=== PATIENT | male | born 1970 | race Caucasian/White ===

== ENCOUNTER 2017-09-13 07:25 | Emergency (ER) | payer OTHER, SELFPAY ==
[2017-09-13] MEDS ORDERED: DIAZEPAM 10 MG/2 ML INJ SYRINGE ONE (08:10)
--- NOTE | 2017-09-13 08:34 | RAD REPORT ---
EXAM DESCRIPTION: CT - Angio Aorta For Dissection - 09/13/2017 8:09 am CLINICAL HISTORY: . Chest pain abdominal pain COMPARISON: 2009 TECHNIQUE: Computed tomography angiography of the chest, abdomen pelvis were obtained. 100 cc Isovue 370 was administered intravenously. Coronal and sagittal reconstruction were performed. All CT scans are performed using dose optimization technique as appropriate and may include automated exposure control or mA/KV adjustment according to patient size. FINDINGS: An aortic dissection is not seen. An aortic aneurysm is not displayed. A a minimal coarct ation involves the very proximal descending thoracic aorta. The celiac, SMA and DECLAN are patent . A lung consolidation is not present. A pericardial effusion is not seen. A pleural effusion is not n oted. The liver,spleen, pancreas and right adrenal kidneys demonstrate no significant abnormality. A small left adrenal adenoma is suspected The appendix is normal. There no evidence diverticulitis. No ascites is noted. IMPRESSION: Negative for an aortic dissection. 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
[2017-09-13 08:36] LABS: Absolute Lymphocytes (CBC) 2.1 K/uL (0.7-4.9); Absolute Monocytes 0.7 K/uL (0.1-1.3); Absolute Neutrophil 2.3 K/uL (1.8-8.0); Eosinophils % 5.3 % (0-4.4); Hematocrit 46.8 % (39.6-49.0); Lymphocytes % 38.3 % (15.3-44.8); MCH 29.4 pg (27.0-35.0); MCV 87.2 fL (80-100); MPV 9.7 fL (7.6-11.3); Monocytes % 12.7 % (3.3-12.3); RBC Red Blood Cell Count 5.37 M/uL (4.33-5.43)
[2017-09-13 08:38] LABS: Protime INR 1.05
[2017-09-13] MEDS ORDERED: KETOROLAC 30 MG/ML INJ ONE (09:02)
[2017-09-13 09:10] LABS: CKMB Creatine Kinase MB 0.8 ng/ml (0.3-4.0); Potassium 4.2 mEq/L (3.6-5.0)
[2017-09-13 09:17] LABS: Albumin 3.6 g/dL (3.2-5.5); Bilirubin Direct 0.2 mg/dL (0-0.2); Bilirubin Total 1.3 mg/dL (0.3-1.2); Magnesium 2.1 mg/dL (1.8-2.5); Protein, Total 6.5 g/dL (6.0-8.3)
[2017-09-13] MEDS ORDERED: FENTANYL CITR 100 MCG/2 ML ONE (09:49)
--- NOTE | 2017-09-13 10:54 | ER ---
Nurse's Notes [facility] Name: Arturo Patel Age: 46 yrs Sex: Male : 1970 Arrival Date: 09/13/2017 Time: 07:26 Bed 16 Private MD: Saurabh Alfonso Diagnosis: Muscle spasm of back Presentation: 09/13 07:22 Presenting complaint: EMS states: pt was at home walking to his truck, started with tw2 stabbing sharp pain in the middle of the back, vs stable, Normal Sinus on EKG, did give 1 nitro relieved pain for a few seconds, 20 g Left ac. Transition of care: patient was not received from another setting of care. Onset of symptoms was September 13, 2017. Risk Assessment: Do you want to hurt yourself or someone else? Patient reports no desire to harm self or others. Initial Sepsis Screen: Does the patient meet any 2 criteria? No. Patient's initial sepsis screen is negative. Does the patient have a suspected source of infection? No. Patient's initial sepsis screen is negative. Care prior to arrival: IV initiated. 20 GA, in the left antecubital area. 07:22 Method Of Arrival: EMS: [facility] tw2 07:22 Acuity: JIMBO 3 tw2 Historical: - Allergies: 07:36 Codeine; tw2 07:30 Codeine; tw2 - Home Meds: 07:36 Nexium Oral [Active]; lisinopril 5 mg oral tab [Active]; tw2 07:30 Nexium Oral [Active]; tw2 - PMHx: 07:36 Hypertension; tw2 07:30 Hypertension; tw2 - PSHx: 07:36 None; tw2 07:30 None; tw2 - Immunization history:: Adult Immunizations up to date. - Social history:: Smoking status: Patient/guardian denies using tobacco. - Ebola Screening: : Patient denies travel to an Ebola-affected area in the 21 days before illness onset. Screenin:36 Abuse screen: Denies threats or abuse. Nutritional screening: No deficits noted. tw2 Tuberculosis screening: No symptoms or risk factors identified. Fall Risk None identified. Assessment: 07:36 General: Appears uncomfortable, well groomed, Behavior is appropriate for age, pt tw2 ambulated slowly from EMS stretcher to bed, stated "i just want to straighten up a bit", pt moaning, pt states "i dont want any pain medicine". Pain: Complains of pain in thoracic area and lumbar area. Neuro: Level of Consciousness is awake, alert, obeys commands, Oriented to person, place, time, situation. Cardiovascular: Denies chest pain, shortness of breath, Heart tones S1 S2 Capillary refill < 3 seconds Patient's skin is warm and dry. Respiratory: Airway is patent Respiratory effort is even, unlabored, Respiratory pattern is regular, symmetrical, Breath sounds are clear bilaterally. GI: No signs and/or symptoms were reported involving the gastrointestinal system. Abdomen is flat, Bowel sounds present X 4 quads. : No signs and/or symptoms were reported regarding the genitourinary system. EENT: No signs and/or symptoms were reported regarding the EENT system. Derm: No signs and/or symptoms reported regarding the dermatologic system. Musculoskeletal: Circulation, motion, and sensation intact. Reports pain in back since "started when i stepped up into my truck", truck is lifted . 08:57 Reassessment: No changes from previously documented assessment. Patient and/or family tw2 updated on plan of care and expected duration. Pain level reassessed. Patient is alert, oriented x 3, equal unlabored respirations, skin warm/dry/pink. 09:38 Reassessment: provider at bedside at this time. tw2 09:56 Reassessment: No changes from previously documented assessment. Patient and/or family tw2 updated on plan of care and expected duration. Pain level reassessed. Patient is alert, oriented x 3, equal unlabored respirations, skin warm/dry/pink. 10:28 Reassessment: pt attempted to ambulate behind w/c at this time, still uncomfortable, tw2 facial grimacing noted, pt states "its better". 11:14 Reassessment: Patient appears in no apparent distress at this time. Patient and/or tw2 family updated on plan of care and expected duration. Pain level reassessed. Patient is alert, oriented x 3, equal unlabored respirations, skin warm/dry/pink. Patient states feeling better. Patient states symptoms have improved. Vital Signs: 07:40 BP 117 / 88; Pulse 72; Resp 18; Temp 97.9(O); Pulse Ox 98% on R/A; Weight 81.65 kg (R); tw2 Height 5 ft. 11 in. (180.34 cm) (R); Pain 10/10; 08:56 BP 124 / 96; Pulse 60; Resp 19; Pulse Ox 96% on R/A; Pain 10/10; tw2 09:56 BP 116 / 91; Pulse 55; Resp 14; Pulse Ox 96% on R/A; tw2 11:02 BP 122 / 96; Pulse 53; Resp 17; Pulse Ox 96% on R/A; tw2 07:40 Body Mass Index 25.10 (81.65 kg, 180.34 cm) tw2 ED Course: 07:26 Patient arrived in ED. tw2 07:29 Triage completed. tw2 07:34 [facility]arthur [facility]C [facility] snw 07:34 Cory Walton MD is Attending Physician. snw 07:35 Sonal Pelaez RN is Primary Nurse. tw2 07:35 Arm band placed on. tw2 07:36 Bed in low position. Call light in reach. court monitor on. Pulse ox on. NIBP on. tw2 07:41 No provider procedures requiring assistance completed. Maintain EMS IV. Dressing tw2 intact. Good blood return noted. Site clean \\T\\ dry. Gauge \\T\\ site: 20g LEFT ac. 08:02 EKG done, by data reduction technician. reviewed by Cory Walton MD. tc 08:09 CT Aorta for Dissection In Process Unspecified. EDMS 08:40 Saurabh Alfonso DO is Private Physician. mr 10:52 Saurabh Alfonso DO is Referral Physician. snw 11:13 IV discontinued, intact, bleeding controlled, No redness/swelling at site. Pressure tw2 dressing applied. Administered Medications: 08:12 Drug: Valium 2 mg Route: IVP; Site: left antecubital; tw2 09:05 Follow up: Response: No adverse reaction; Pain is unchanged, physician notified tw2 09:05 Drug: TORadol 30 mg Route: IVP; Site: left antecubital; tw2 09:52 Follow up: Response: No adverse reaction; Pain is decreased tw2 09:51 Drug: fentaNYL (PF) 25 mcg Route: IVP; Site: left antecubital; tw2 11:03 Follow up: Response: No adverse reaction tw2 10:55 Drug: fentaNYL (PF) 75 mcg Route: IM; Site: right deltoid; tw2 11:13 Follow up: Response: No adverse reaction; Pain is decreased tw2 Outcome: 10:53 Discharge ordered by . snw 11:13 Discharged to home ambulatory, with significant other. tw2 11:13 Condition: stable 11:13 Discharge instructions given to patient, significant other, Instructed on discharge instructions, follow up and referral plans. no drinking with medication, no driving heavy equipment, medication usage, Demonstrated understanding of instructions, follow-up care, medications, Prescriptions given X 2. 11:16 Patient left the ED. tw2 Signatures: Dispatcher [employer] EDMS Naomi Mcarthur, CLINICAL SOCIOLOGIST-C CLINICAL SOCIOLOGIST-Csnw Cecy Roth Tiffany, locomotive operator helper EKG Sonal Pugh, LAURA RN tw2 Corrections: (The following items were deleted from the chart) 07:41 07:30 Home Meds: Metoprolol Tartrate Oral; tw2 tw2 10:38 10:28 Reassessment: pt attempted to ambulate behind w/c at this time, still tw2 uncomfortable, facial grimacing noted tw2
--- NOTE | 2017-09-13 10:54 | EDPHYS ---
Physician Documentation [facility] Name: Arturo Patel Age: 46 yrs Sex: Male : 1970 Arrival Date: 09/13/2017 Time: 07:26 Bed 16 Private MD: Kaden [facility] ED Physician Cory Walton HPI: 09/13 08:52 This 46 yrs old Male presents to ER via EMS with complaints of Back Pain. snw 08:52 The patient presents with pain that is acute, with no known mechanism of injury. The snw symptoms are located in the thoracic area. Onset: The symptoms/episode began/occurred suddenly, and became worse and became persistent. The pain does not radiate. Associated signs and symptoms: The patient has no apparent associated signs or symptoms. The problem was sustained from unknown cause. Modifying factors: The patient symptoms are alleviated by nothing. Severity of symptoms: At their worst the symptoms were moderate, severe. The patient has not experienced similar symptoms in the past. It is unknown whether or not the patient has recently seen a physician. 08:56 pt states pain is stabbing in his upper/mid back. Spouse gave pt NTG and it helped very snw temporarily. Historical: - Allergies: 07:36 Codeine; tw2 07:30 Codeine; tw2 - Home Meds: 07:36 Nexium Oral [Active]; lisinopril 5 mg oral tab [Active]; tw2 07:30 Nexium Oral [Active]; tw2 - PMHx: 07:36 Hypertension; tw2 07:30 Hypertension; tw2 - PSHx: 07:36 None; tw2 07:30 None; tw2 - Immunization history:: Adult Immunizations up to date. - Social history:: Smoking status: Patient/guardian denies using tobacco. - Ebola Screening: : Patient denies travel to an Ebola-affected area in the 21 days before illness onset. ROS: 08:52 Constitutional: Negative for fever, chills, and weight loss, Eyes: Negative for injury, snw pain, redness, and discharge, ENT: Negative for injury, pain, and discharge, Neck: Negative for injury, pain, and swelling, Cardiovascular: Negative for chest pain, palpitations, and edema, Respiratory: Negative for shortness of breath, cough, wheezing, and pleuritic chest pain, Abdomen/GI: Negative for abdominal pain, nausea, vomiting, diarrhea, and constipation, : Negative for injury, bleeding, discharge, and swelling, MS/Extremity: Negative for injury and deformity, Skin: Negative for injury, rash, and discoloration, Neuro: Negative for headache, weakness, numbness, tingling, and seizure. 08:52 Back: Positive for decreased range of motion, pain at rest, pain with movement, of the thoracic area. Exam: 08:56 Constitutional: This is a well developed, well nourished patient who is awake, alert, snw and in no acute distress. Head/Face: Normocephalic, atraumatic. Eyes: Pupils equal round and reactive to light, extra-ocular motions intact. Lids and lashes normal. Conjunctiva and sclera are non-icteric and not injected. Cornea within normal limits. Periorbital areas with no swelling, redness, or edema. ENT: Nares patent. No nasal discharge, no septal abnormalities noted. Tympanic membranes are normal and external auditory canals are clear. Oropharynx with no redness, swelling, or masses, exudates, or evidence of obstruction, uvula midline. Mucous membranes moist. Neck: Trachea midline, no thyromegaly or masses palpated, and no cervical lymphadenopathy. Supple, full range of motion without nuchal rigidity, or vertebral point tenderness. No Meningismus. Chest/axilla: Normal chest wall appearance and motion. Nontender with no deformity. No lesions are appreciated. Cardiovascular: Regular rate and rhythm with a normal S1 and S2. No gallops, murmurs, or rubs. Normal PMI, no JVD. No pulse deficits. Respiratory: Lungs have equal breath sounds bilaterally, clear to auscultation and percussion. No rales, rhonchi or wheezes noted. No increased work of breathing, no retractions or nasal flaring. Abdomen/GI: Soft, non-tender, with normal bowel sounds. No distension or tympany. No guarding or rebound. No evidence of tenderness throughout. Skin: Warm, dry with normal turgor. Normal color with no rashes, no lesions, and no evidence of cellulitis. MS/ Extremity: Pulses equal, no cyanosis. Neurovascular intact. Full, normal range of motion. Neuro: Awake and alert, GCS 15, oriented to person, place, time, and situation. Cranial nerves II-XII grossly intact. Motor strength 5/5 in all extremities. Sensory grossly intact. Cerebellar exam normal. Normal gait. 08:56 Back: pain, that is moderate, that is severe, of the thoracic area, ROM is painful, normal spinal alignment noted, CVA tenderness, is absent, vertebral tenderness, is not appreciated, muscle spasm, is appreciated in the left scapular area, right scapular area, left subscapular area and right subscapular area. 08:56 Neuro: Exam negative for acute changes. Vital Signs: 07:40 BP 117 / 88; Pulse 72; Resp 18; Temp 97.9(O); Pulse Ox 98% on R/A; Weight 81.65 kg (R); tw2 Height 5 ft. 11 in. (180.34 cm) (R); Pain 10/10; 08:56 BP 124 / 96; Pulse 60; Resp 19; Pulse Ox 96% on R/A; Pain 10/10; tw2 09:56 BP 116 / 91; Pulse 55; Resp 14; Pulse Ox 96% on R/A; tw2 11:02 BP 122 / 96; Pulse 53; Resp 17; Pulse Ox 96% on R/A; tw2 07:40 Body Mass Index 25.10 (81.65 kg, 180.34 cm) tw2 MDM: 07:59 Patient medically screened. snw 11:29 Data reviewed: vital signs, nurses notes. Data interpreted: Pulse oximetry: on room air snw is 96 %. Interpretation: normal. Counseling: I had a detailed discussion with the patient and/or guardian regarding: the historical points, exam findings, and any diagnostic results supporting the discharge/admit diagnosis, the presence of at least one elevated blood pressure reading (>120/80) during this emergency department visit, lab results, radiology results, the need for outpatient follow up, to return to the emergency department if symptoms worsen or persist or if there are any questions or concerns that arise at home. Special discussion: I have referred the patient to see his PCP for further evaluation of high blood pressure. Based on the history and exam findings, there is no indication for further emergent testing or inpatient evaluation. I discussed with the patient/guardian the need to see the back specialist for further evaluation of the symptoms. I discussed with the patient/guardian the need to see the reinforcing steel machine operator for further evaluation of the symptoms. I discussed with the patient/guardian the need to see the primary care provider for further evaluation of the symptoms. 09/13 08:00 Order name: Basic Metabolic Panel; Complete Time: 09:23 snw 09/13 08:00 Order name: BNP; Complete Time: 09:01 w 09/13 08:00 Order name: CBC with Diff; Complete Time: 08:39 snw 09/13 08:00 Order name: Ckmb; Complete Time: 09:23 snw 09/13 08:00 Order name: CPK; Complete Time: 09:23 sn09/13 08:00 Order name: LFT's; Complete Time: 09:23 snw 09/13 07:36 Order name: CT Aorta for Dissection; Complete Time: 08:39 snw 09/13 08:00 Order name: Magnesium; Complete Time: 09:23 w 09/13 08:00 Order name: PT-INR; Complete Time: 08:48 09/13 08:00 Order name: Ptt, Activated; Complete Time: 08:48 09/13 08:00 Order name: Troponin (emerg Dept Use Only); Complete Time: 09:36 w 09/13 08:00 Order name: EKG; Complete Time: 08:00 09/13 08:00 Order name: Cardiac monitoring; Complete Time: 08:01 09/13 08:00 Order name: EKG - Nurse/Tech; Complete Time: 08:02 09/13 08:00 Order name: IV Saline Lock; Complete Time: 08:02 09/13 08:00 Order name: Labs collected and sent; Complete Time: 08:17 09/13 08:00 Order name: O2 Per Protocol; Complete Time: 08:02 w 09/13 08:00 Order name: O2 Sat Monitoring; Complete Time: 08:02 09/13 10:25 Order name: Misc. Order: please assist pt in ambulation; Complete Time: 10:43 snw Administered Medications: 08:12 Drug: Valium 2 mg Route: IVP; Site: left antecubital; tw2 09:05 Follow up: Response: No adverse reaction; Pain is unchanged, physician notified tw2 09:05 Drug: TORadol 30 mg Route: IVP; Site: left antecubital; tw2 09:52 Follow up: Response: No adverse reaction; Pain is decreased tw2 09:51 Drug: fentaNYL (PF) 25 mcg Route: IVP; Site: left antecubital; tw2 11:03 Follow up: Response: No adverse reaction tw2 10:55 Drug: fentaNYL (PF) 75 mcg Route: IM; Site: right deltoid; tw2 11:13 Follow up: Response: No adverse reaction; Pain is decreased tw2 Disposition: 12:18 Co-signature as Attending Physician, Cory Walton MD I agree with the assessment and kdr plan of care. Disposition: 09/13/17 10:53 Discharged to Home. Impression: Muscle spasm of back. - Condition is Stable. - Discharge Instructions: Hypertension, Muscle Cramps and Spasms, Muscle Cramps and Spasms, Pzqs-br-Liao, Back Exercises, Cred-tr-Mvmi, Heat Therapy, Heat Therapy, [id number]. - Prescriptions for Diclofenac Sodium 75 mg Oral Tablet Sustained Release - take 1 tablet by ORAL route 2 times per day; 30 tablet. orphenadrine citrate 100 mg Oral Tablet Sustained Release - take 1 tablet by ORAL route 2 times per day As needed; 20 tablet. - Work release form, Medication Reconciliation Form, Thank You Letter, Antibiotic Education, Prescription Opioid Use form. - Follow up: Saurabh Alfonso DO; When: 1 - 2 days; Reason: Recheck today's complaints, Continuance of care, Re-evaluation by your physician. Follow up: Emergency Department; When: As needed; Reason: Worsening of condition. Signatures: Dispatcher [employer] EDAZ Cory Walton MD MD kdr Therrien, Shelly, LIFE INSURANCE SALES AGENT-C LIFE INSURANCE SALES AGENT-Csnw Sonal Pelaez, RN RN tw2 Corrections: (The following items were deleted from the chart) 07:41 07:30 Home Meds: Metoprolol Tartrate Oral; tw2 tw2 11:16 10:53 09/13/2017 10:53 Discharged to Home. Impression: Muscle spasm of back. Condition tw2 is Stable. Forms are Medication Reconciliation Form, Thank You Letter, Antibiotic Education, Prescription Opioid Use. Follow up: Saurabh Alfonso; When: 1 - 2 days; Reason: Recheck today's complaints, Continuance of care, Re-evaluation by your physician. Follow up: Emergency Department; When: As needed; Reason: Worsening of condition. snw
--- NOTE | 2017-09-13 12:05 | EKG ---
Test Date: 2017-09-13 Test Time: 07:27:06 Banana Expert: DEYVI MEASUREMENT RESULTS: Intervals: Rate: 71 TX: 144 QRSD: 84 QT: 386 QTc: 419 [place]: P: 68 TX: 144 QRS: 77 T: 66 INTERPRETIVE STATEMENTS: Normal sinus rhythm Normal ECG Compared to ECG 08/23/2016 15:29:59 Sinus bradycardia no longer present Electronically Signed On 09-13-17 12:04:58 CDT by Duane Velasquez
== END 2017-09-13 11:16 | disposition home or self-care (01) ==
LOC: ER 07:25
DX: M62.830 Muscle spasm of back (principal); I10 Essential (primary) hypertension; Z88.5 Allergy status to narcotic agent
CPT/HCPCS: 36415; 71275; 74175; 80048; 80076; 82550; 82553; 83735; 83880; 84484; 85025; 85610; 85730; 93005; 96372; 96374; 96375; 99284; J3010; J3360; Q9967

== ENCOUNTER 2017-12-21 10:06 | Emergency (ER) | payer OTHER, SELFPAY ==
--- OUTSIDE RECORDS SUMMARY | 2017-12-21 10:08 | XMS REPORT ---
:1970 Author Organization [employer] Care Team Providers Name Role Phone Kaden Saurabh Provider Role Unavailable Allergies No Known Allergies Problems Problem Type Condition Code Onset Dates Condition Status Assessment Colon polyps K63.5 Active Assessment Gastro-esophageal reflux disease K21.9 Active without esophagitis Assessment Hyperlipidemia E78.5 Active Assessment Left leg pain M79.605 Active Problem Benign essential HTN I10 Active Problem Gastro-esophageal reflux disease K21.9 Active without esophagitis Problem Hyperlipidemia E78.5 Active Assessment Benign essential HTN I10 Active Problem Family history of colon cancer Z80.0 Active Problem Colon polyps K63.5 Active Medications Medication Code Code Instructions Start End Status Dosage System Date Date Nexium [facility] 52010686121 20 MG Orally Active 1 capsule Once a day Amlodipine [facility] 10298614993 5 MG Orally Active 1 tablet Besylate Once a day Metoprolol [facility] 72759687668 50 MG Orally Inactive 1 tablet Succinate ER Once a day Aspir-81 [facility] 62264694599 81 MG Orally Active 1 tablet Once a day Results No Known Results Summary Purpose [employer] Submission
[2017-12-21] MEDS ORDERED: ONDANSETRON 4 MG/2 ML VIAL ONE (10:14)
[2017-12-21] MEDS ORDERED: MORPHINE 4 MG/ML SYR ONE (10:14)
[2017-12-21] MEDS ORDERED: KETOROLAC 30 MG/ML INJ ONE (10:14)
[2017-12-21] MEDS ORDERED: NA CHLORIDE 0.9% 1,000 ML ONE (10:15)
[2017-12-21] MEDS ORDERED: FENTANYL CITR 100 MCG/2 ML ONE ×2 (10:20→10:45)
[2017-12-21 10:42] LABS: Absolute Lymphocytes (CBC) 2.6 K/uL (0.7-4.9); Absolute Monocytes 0.9 K/uL (0.1-1.3); Absolute Neutrophil 3.1 K/uL (1.8-8.0); Basophils % 0.7 % (0-1.3); Eosinophils % 6.9 % (0-4.4); Hematocrit 48.3 % (39.6-49.0); Lymphocytes % 36.9 % (15.3-44.8); MCH 30.2 pg (27.0-35.0); MCV 86.1 fL (80-100); MPV 9.3 fL (7.6-11.3); Monocytes % 12.1 % (3.3-12.3); RBC Red Blood Cell Count 5.62 M/uL (4.33-5.43)
[2017-12-21] MEDS ORDERED: TAMSULOSIN 0.4 MG SR CAP ONE (10:45)
[2017-12-21 11:01] LABS: Bilirubin Direct 0.2 mg/dL (0-0.2); Bilirubin Total 0.9 mg/dL (0.2-1.0); Potassium 3.5 mmol/L (3.5-5.1); Protein, Total 7.4 g/dL (6.4-8.2)
--- NOTE | 2017-12-21 11:24 | RAD REPORT ---
EXAM DESCRIPTION: CT - Stone Protocol - 12/21/2017 10:59 am CLINICAL HISTORY: Abdominal pain. Right lower quadrant pain with nausea COMPARISON: August 2017 TECHNIQUE: Computed axial tomography of the abdomen pelvis was obtained without oral or IV contrast. Lack of IV and oral contrast limits evaluation of solid organs, bowel, and vessels. Coronal reformat blanka images were obtained and reviewed. All CT scans are performed using dose optimization technique as appropriate and may include automated exposure control or mA/KV adjustment according to patient size. FINDINGS: A renal calculus is not seen. An ureteral calculus is not noted. A bladder calculus is not present. The liver, spleen, pancreas and right kidney appear grossly normal. A small left adrenal adenoma is s uspected. There is no evidence of diverticulitis. The appendix appears normal. Small inguinal hernias containing fat are suspected. IMPRESSION: Negative for a genitourinary calculus
[2017-12-21] MEDS ORDERED: DICYCLOMINE HCL 10 MG CAP ONE (12:19)
--- NOTE | 2017-12-21 13:17 | ER ---
Nurse's Notes [facility] Name: Arturo Patel Age: 47 yrs Sex: Male : 1970 Arrival Date: 12/21/2017 Time: 10:14 Bed 27 Private MD: Diagnosis: Unspecified renal colic;Lower abdominal pain, unspecified Presentation: 12/21 10:18 Presenting complaint: EMS states: sudden onset of RLQ pain rated at 10/10. Nausea dm5 noted. EMS started a 20 G IV in Left AC. Transition of care: patient was not received from another setting of care. Onset of symptoms was December 21, 2017. Risk Assessment: Do you want to hurt yourself or someone else? Patient reports no desire to harm self or others. Initial Sepsis Screen: Does the patient meet any 2 criteria? No. Patient's initial sepsis screen is negative. Does the patient have a suspected source of infection? No. Patient's initial sepsis screen is negative. Care prior to arrival: IV initiated. 20 GA, in the left antecubital area. 10:18 Method Of Arrival: EMS: [facility] dm5 10:18 Acuity: JIMBO 3 dm5 Triage Assessment: 10:20 General: Appears in no apparent distress. uncomfortable, Behavior is cooperative. Pain: dm5 Complains of pain in right lower quadrant Pain currently is 10 out of 10 on a pain scale. Quality of pain is described as crampy, sharp, Pain began suddenly, Is continuous. GI: Reports lower abdominal pain, nausea, vomiting. Historical: - Allergies: 10:20 Codeine; dm5 - Home Meds: 10:20 amlodipine oral [Active]; dm5 - PMHx: 10:20 Hypertension; dm5 - PSHx: 10:20 None; dm5 - Ebola Screening: : No symptoms or risks identified at this time. Screenin:25 Abuse screen: Denies threats or abuse. Nutritional screening: No deficits noted. aa5 Tuberculosis screening: No symptoms or risk factors identified. Fall Risk None identified. Assessment: 10:25 Reassessment: Patient states feeling better. General: Appears comfortable, Behavior is aa5 calm, cooperative. Pain: Complains of pain in right lower quadrant Pain radiates to right flank Pain currently is 2 out of 10 on a pain scale. Quality of pain is described as sharp, shooting, Pain began today Is continuous, Aggravated by increased activity, repositioning. Neuro: Level of Consciousness is awake, alert, obeys commands, Oriented to person, place, time, situation. Cardiovascular: Heart tones S1 S2 present Rhythm is regular. Respiratory: Airway is patent Respiratory effort is even, unlabored, Respiratory pattern is regular, symmetrical, Breath sounds are clear bilaterally. GI: Abdomen is round non-distended, Bowel sounds present X 4 quads. Abd is soft X 4 quads Abdomen is tender to palpation in right lower quadrant Patient currently denies nausea, vomiting. : No signs and/or symptoms were reported regarding the genitourinary system. Denies burning with urination, inability to void. EENT: No signs and/or symptoms were reported regarding the EENT system. Derm: Skin is pink, warm \\T\\ dry. Musculoskeletal: Range of motion: intact in all extremities. 11:00 Reassessment: Patient and/or family updated on plan of care and expected duration. Pain aa5 level reassessed. Patient is alert, oriented x 3, equal unlabored respirations, skin warm/dry/pink. Pt states "I feel okay just as long as I don't move now" . Pain: Pain currently is 2 out of 10 on a pain scale. 12:00 Reassessment: Patient and/or family updated on plan of care and expected duration. Pain aa5 level reassessed. Patient is alert, oriented x 3, equal unlabored respirations, skin warm/dry/pink. Pain: Pain currently is 8 out of 10 on a pain scale. 12:00 General: Appears uncomfortable. aa5 13:00 Reassessment: Patient and/or family updated on plan of care and expected duration. Pain aa5 level reassessed. Patient is alert, oriented x 3, equal unlabored respirations, skin warm/dry/pink. Pt states "I don't hurt right now but when I tried to get out of bed to pee I couldn't stand up because it hurts too bad" . Pain: Pain currently is 0 out of 10 on a pain scale. 13:40 Reassessment: GARMENT PARTS CUTTER [employer] at bedside speaking with patient . aa5 13:55 Reassessment: Patient is alert, oriented x 3, equal unlabored respirations, skin aa5 warm/dry/pink. Vital Signs: 10:20 BP 145 / 112; Pulse 83; Resp 22; Pulse Ox 98% on R/A; Weight 82.55 kg; Height 5 ft. 11 dm5 in. (180.34 cm); Pain 10/10; 10:23 Temp 98.1(O); dm5 11:00 BP 127 / 95; Pulse 68; Resp 20 S; Pulse Ox 96% on R/A; aa5 12:00 BP 126 / 92; Pulse 60; Resp 16 S; Pulse Ox 97% on R/A; aa5 13:00 BP 124 / 86; Pulse 60; Resp 18 S; Pulse Ox 97% on R/A; Pain 0/10; aa5 10:20 Body Mass Index 25.38 (82.55 kg, 180.34 cm) dm5 ED Course: 10:14 Patient arrived in ED. ch 10:17 Naomi Mcarthur FNP-C is PHCP. snw 10:17 Cory Walton MD is Attending Physician. snw 10:20 Triage completed. dm5 10:20 Arm band placed on right wrist. Patient placed in an exam room, on a stretcher, on dm5 pulse oximetry. 10:21 Leslie Morales, RN is Primary Nurse. aa5 10:25 Patient has correct armband on for positive identification. Placed in gown. Bed in low aa5 position. Call light in reach. Side rails up X2. 10:59 CT Stone Protocol In Process Unspecified. EDMS 13:55 IV discontinued, intact, bleeding controlled, No redness/swelling at site. Pressure aa5 dressing applied. 13:55 No provider procedures requiring assistance completed. aa5 Administered Medications: 10:18 Drug: fentaNYL (PF) 50 mcg Route: IVP; Site: left antecubital; aj 10:25 Follow up: Response: No adverse reaction aa5 10:18 Drug: TORadol 30 mg Route: IVP; Site: left antecubital; aj 10:25 Follow up: Response: No adverse reaction aa5 10:18 Drug: Zofran 4 mg Route: IVP; Site: left antecubital; aj 10:25 Follow up: Response: No adverse reaction aa5 10:18 Drug: NS 0.9% 1000 ml Route: IV; Rate: 1 bolus; Site: left antecubital; aj 11:00 Follow up: IV Status: Completed infusion aa5 10:45 Drug: Flomax 0.4 mg Route: PO; dm5 11:00 Follow up: Response: No adverse reaction aa5 10:45 Drug: fentaNYL (PF) 25 mcg Route: IVP; Site: left antecubital; dm5 11:00 Follow up: Response: No adverse reaction aa5 12:17 Drug: Bentyl 20 mg Route: PO; aa5 13:00 Follow up: Response: No adverse reaction aa5 13:32 Drug: Valium 5 mg Route: PO; aa5 13:55 Follow up: Response: No adverse reaction aa5 Intake: 12:50 clear urine noted aa5 Output: 12:50 Urine: 500ml (Voided); Total: 500ml. aa5 12:50 clear urine noted aa5 Outcome: 13:17 Discharge ordered by . [email or web address] 13:55 Discharged to home ambulatory, with significant other. aa5 13:55 Condition: stable 13:55 Discharge instructions given to patient, Instructed on discharge instructions, follow up and referral plans. medication usage, Demonstrated understanding of instructions, follow-up care, medications, Prescriptions given X 2. 14:03 Patient left the ED. aa5 Signatures: Dispatcher [employer] EDMS Coni Heller RN Macie Cantu ch, RN RN dm5 Myers, Amanda, RN RN aj Therrien, Shelly, FNP-Salena MONTGOMERYP-Annaw Leslie Morales RN RN aa5
--- NOTE | 2017-12-21 13:18 | EDPHYS ---
Physician Documentation [facility] Name: Arturo Patel Age: 47 yrs Sex: Male : 1970 Arrival Date: 12/21/2017 Time: 10:14 Bed 27 Private MD: ED Physician Cory Walton HPI: 12/21 10:27 This 47 yrs old Male presents to ER via EMS with complaints of Abdominal Pain.snw 10:27 The patient presents with abdominal pain right lower quadrant. Onset: The snw symptoms/episode began/occurred suddenly, today. The symptoms do not radiate. Associated signs and symptoms: Pertinent positives: nausea and vomiting, cramping. The symptoms are described as crampy, sharp. Severity of pain: At its worst the pain was severe. The patient has not experienced similar symptoms in the past. It is unknown whether or not the patient has recently seen a physician. Historical: - Allergies: 10:20 Codeine; dm5 - Home Meds: 10:20 amlodipine oral [Active]; dm5 - PMHx: 10:20 Hypertension; dm5 - PSHx: 10:20 None; dm5 - Ebola Screening: : No symptoms or risks identified at this time. ROS: 10:19 Constitutional: Negative for fever, chills, and weight loss, Eyes: Negative for injury, snw pain, redness, and discharge, ENT: Negative for injury, pain, and discharge, Neck: Negative for injury, pain, and swelling, Cardiovascular: Negative for chest pain, palpitations, and edema, Respiratory: Negative for shortness of breath, cough, wheezing, and pleuritic chest pain, Abdomen/GI: Positive for abdominal pain, nausea, negative for vomiting, diarrhea, and constipation, Back: Negative for injury and pain, : Negative for injury, bleeding, discharge, and swelling, MS/Extremity: Negative for injury and deformity, Skin: Negative for injury, rash, and discoloration, Neuro: Negative for headache, weakness, numbness, tingling, and seizure, Psych: Negative for depression, anxiety, suicide ideation, homicidal ideation, and hallucinations. Exam: 10:19 Constitutional: This is a well developed, well nourished patient who is awake, alert, snw and in no acute distress. Head/Face: Normocephalic, atraumatic. Eyes: Pupils equal round and reactive to light, extra-ocular motions intact. Lids and lashes normal. Conjunctiva and sclera are non-icteric and not injected. Cornea within normal limits. Periorbital areas with no swelling, redness, or edema. ENT: Nares patent. No nasal discharge, no septal abnormalities noted. Tympanic membranes are normal and external auditory canals are clear. Oropharynx with no redness, swelling, or masses, exudates, or evidence of obstruction, uvula midline. Mucous membranes moist. Neck: Trachea midline, no thyromegaly or masses palpated, and no cervical lymphadenopathy. Supple, full range of motion without nuchal rigidity, or vertebral point tenderness. No Meningismus. Chest/axilla: Normal chest wall appearance and motion. Nontender with no deformity. No lesions are appreciated. Cardiovascular: Regular rate and rhythm with a normal S1 and S2. No gallops, murmurs, or rubs. Normal PMI, no JVD. No pulse deficits. Respiratory: Lungs have equal breath sounds bilaterally, clear to auscultation and percussion. No rales, rhonchi or wheezes noted. No increased work of breathing, no retractions or nasal flaring. Back: No spinal tenderness. No costovertebral tenderness. Full range of motion. Skin: Warm, dry with normal turgor. Normal color with no rashes, no lesions, and no evidence of cellulitis. MS/ Extremity: Pulses equal, no cyanosis. Neurovascular intact. Full, normal range of motion. Neuro: Awake and alert, GCS 15, oriented to person, place, time, and situation. Cranial nerves II-XII grossly intact. Motor strength 5/5 in all extremities. Sensory grossly intact. Cerebellar exam normal. Normal gait. 10:19 Abdomen/GI: Inspection: abdomen appears normal, Bowel sounds: normal, Palpation: moderate abdominal tenderness, in the right lower quadrant. Vital Signs: 10:20 BP 145 / 112; Pulse 83; Resp 22; Pulse Ox 98% on R/A; Weight 82.55 kg; Height 5 ft. 11 dm5 in. (180.34 cm); Pain 10/10; 10:23 Temp 98.1(O); dm5 11:00 BP 127 / 95; Pulse 68; Resp 20 S; Pulse Ox 96% on R/A; aa5 12:00 BP 126 / 92; Pulse 60; Resp 16 S; Pulse Ox 97% on R/A; aa5 13:00 BP 124 / 86; Pulse 60; Resp 18 S; Pulse Ox 97% on R/A; Pain 0/10; aa5 10:20 Body Mass Index 25.38 (82.55 kg, 180.34 cm) dm5 MDM: 10:19 Patient medically screened. snw 14:04 Data reviewed: vital signs, nurses notes. Data interpreted: Pulse oximetry: on room air snw is 97 %. Interpretation: normal. Counseling: I had a detailed discussion with the patient and/or guardian regarding: the historical points, exam findings, and any diagnostic results supporting the discharge/admit diagnosis, the presence of at least one elevated blood pressure reading (>120/80) during this emergency department visit, lab results, radiology results, the need for outpatient follow up, to return to the emergency department if symptoms worsen or persist or if there are any questions or concerns that arise at home. Special discussion: Based on the patient's Hx, exam, and Dx evaluation, there is no indication for emergent surgery or inpatient Tx. It is understood by the patient/guardian that if the Sx's persist or worsen they need to return immediately for re-evaluation. I have referred the patient to see his PCP for further evaluation of high blood pressure. Based on the history and exam findings, there is no indication for further emergent testing or inpatient evaluation. I discussed with the patient/guardian the need to see the condemnation engineer for further evaluation of the symptoms. I discussed with the patient/guardian the need to see the primary care provider for further evaluation of the symptoms. 12/21 10:26 Order name: Amylase, Serum snw 12/21 10:26 Order name: Basic Metabolic Panel; Complete Time: 11:02 snw 12/21 10:26 Order name: CBC with Diff; Complete Time: 10:54 snw 12/21 10:26 Order name: Creatinine for Radiology; Complete Time: 11:16 snw 12/21 10:26 Order name: Hepatic Function; Complete Time: 11:02 snw 12/21 10:26 Order name: Lipase; Complete Time: 11:02 snw 12/21 10:26 Order name: Urine Microscopic Only snw 12/21 10:26 Order name: CT Stone Protocol; Complete Time: 11:28 snw 12/21 10:27 Order name: Amylase Level; Complete Time: 11:02 EDMS 12/21 13:03 Order name: Urine Dipstick--Ancillary (enter results); Complete Time: 13:25 bd 12/21 10:26 Order name: IV Saline Lock; Complete Time: 11:06 snw 12/21 10:26 Order name: Labs collected and sent; Complete Time: 11:06 snw 12/21 10:26 Order name: Urine Dipstick-Ancillary (obtain specimen); Complete Time: 13:11 snw Administered Medications: 10:18 Drug: fentaNYL (PF) 50 mcg Route: IVP; Site: left antecubital; aj 10:25 Follow up: Response: No adverse reaction aa5 10:18 Drug: TORadol 30 mg Route: IVP; Site: left antecubital; aj 10:25 Follow up: Response: No adverse reaction aa5 10:18 Drug: Zofran 4 mg Route: IVP; Site: left antecubital; aj 10:25 Follow up: Response: No adverse reaction aa5 10:18 Drug: NS 0.9% 1000 ml Route: IV; Rate: 1 bolus; Site: left antecubital; aj 11:00 Follow up: IV Status: Completed infusion aa5 10:45 Drug: Flomax 0.4 mg Route: PO; dm5 11:00 Follow up: Response: No adverse reaction aa5 10:45 Drug: fentaNYL (PF) 25 mcg Route: IVP; Site: left antecubital; dm5 11:00 Follow up: Response: No adverse reaction aa5 12:17 Drug: Bentyl 20 mg Route: PO; aa5 13:00 Follow up: Response: No adverse reaction aa5 13:32 Drug: Valium 5 mg Route: PO; aa5 13:55 Follow up: Response: No adverse reaction aa5 Disposition: 14:14 Co-signature as Attending Physician, Cory Walton MD I agree with the assessment and kdr plan of care. Disposition: 12/21/17 13:17 Discharged to Home. Impression: Unspecified renal colic, Lower abdominal pain, unspecified. - Condition is Stable. - Discharge Instructions: Abdominal Pain, Adult, Flank Pain, Adult, Hypertension, Renal Colic, Dietary Guidelines to Help Prevent Kidney Stones. - Prescriptions for Bentyl 20 mg Oral Tablet - take 1 tablet by ORAL route every 6 hours As needed; 20 tablet. Diclofenac Sodium 75 mg Oral Tablet Sustained Release - take 1 tablet by ORAL route 2 times per day; 30 tablet. - Work release form, Medication Reconciliation Form, Thank You Letter, Antibiotic Education, Prescription Opioid Use form. - Follow up: Private Physician; When: 1 - 2 days; Reason: Recheck today's complaints, Continuance of care, Re-evaluation by your physician. Follow up: Emergency Department; When: As needed; Reason: Worsening of condition. Signatures: Dispatcher [employer] EDMS Macie Plaza RN RN dm5 Concepcion Whiteside RN RN Cory Hunt MD MD kdr Naomi Mcarthur, FRONT END ARCHITECT-C FRONT END ARCHITECT-Csnw Leslie Morales, RN RN aa5 Corrections: (The following items were deleted from the chart) 14:03 13:17 12/21/2017 13:17 Discharged to Home. Impression: Unspecified renal colic; Lower aa5 abdominal pain, unspecified. Condition is Stable. Forms are Medication Reconciliation Form, Thank You Letter, Antibiotic Education, Prescription Opioid Use. Follow up: Private Physician; When: 1 - 2 days; Reason: Recheck today's complaints, Continuance of care, Re-evaluation by your physician. Follow up: Emergency Department; When: As needed; Reason: Worsening of condition. snw
[2017-12-21 13:22] LABS: Urine Blood NEGATIVE (NEG); Urine Glucose NEGATIVE (NEG); Urine Protein NEGATIVE (NEG)
[2017-12-21] MEDS ORDERED: DIAZEPAM 5 MG TABLET ONE (13:32)
[2017-12-21 14:06] LABS: Urine Bacteria NONE SEEN /HPF (NONE SEEN); Urine RBC NONE SEEN /HPF (NONE SEEN)
[2017-12-21 14:07] LABS: Urine Culture Reflex Order NOT NEEDED
== END 2017-12-21 14:03 | disposition home or self-care (01) ==
LOC: ER 10:06
DX: N23 Unspecified renal colic (principal); I10 Essential (primary) hypertension; Z88.5 Allergy status to narcotic agent
CPT/HCPCS: 36415; 74176; 76377; 80048; 80076; 81003; 81015; 82150; 83690; 85025; 96361; 96374; 96375; 99284; J2405; J3010; J7030

== ENCOUNTER 2017-12-26 13:52 | Emergency (ER) | payer OTHER ==
--- OUTSIDE RECORDS SUMMARY | 2017-12-26 13:55 | XMS REPORT | Continuity of Care Document ---
:1970 Author Organization [facility] Care Team Providers Name Role Phone MD Eric, Souleymane Unavailable Unavailable Insurance Providers Payer name Policy type / Coverage Policy ID Covered republican ID Policy [place] Encounters Encounter Performer Location Date Office Visit Souleymane Reyes MD [facility] Sep Colorectal Surgery Problems Problem Effective Dates Problem Status ANAL SKIN TAGS August 24, 2014 Active BLEEDING, RECTAL/ANAL August 24, 2014 Active INTERNAL HEMORRHOIDS, WITH COMPLICATION August 24, 2014 Active COLORECTAL CANCER August 24, 2014 Active COLON POLYPS August 24, 2014 Active Procedures Date Description Comments August 22, 2014 smoking status Current every day smoker August 22, 2014 smoking/tobacco cessation, patient education yes and counseling Oct 01, 2014 smoking status Current every day smoker Oct 01, 2014 smoking/tobacco cessation, patient education yes and counseling Medications Medication Instructions Start Date Status NEXIUM CPDR August 22, 2014 Active Vital Signs Date Description Test Result August 22, 2014 height E&M - 8302-2 HEIGHT 71 in August 22, 2014 weight E&M - 3141-9 WEIGHT 162 lb August 22, 2014 temperature E&M TEMPERATURE 98.3 deg f August 22, 2014 blood pressure, systolic - 8480-6 BP SYSTOLIC 130 mm Hg August 22, 2014 blood pressure, diastolic - 8462-4 BP DIASTOLIC 92 mm Hg Oct 01, 2014 height E&M - 8302-2 HEIGHT 71 in Oct 01, 2014 weight E&M - 3141-9 WEIGHT 160 lb Oct 01, 2014 temperature E&M TEMPERATURE 98.2 deg f Oct 01, 2014 pulse rate E&M - 8867-4 PULSE RATE 65 /min Oct 01, 2014 blood pressure, systolic - 8480-6 BP SYSTOLIC 124 mm Hg Oct 01, 2014 blood pressure, diastolic - 8462-4 BP DIASTOLIC 88 mm Hg
--- OUTSIDE RECORDS SUMMARY | 2017-12-26 13:55 | XMS REPORT ---
[...] End Status Dosage System Date Date Nexium [facility] 05591756406 20 MG Orally Active 1 capsule Once a day Amlodipine [facility] 22413361198 5 MG Orally Active 1 tablet Besylate Once a day Metoprolol [facility] 55357937875 50 MG Orally Inactive 1 tablet Succinate ER Once a day Aspir-81 [facility] 54047180830 81 MG Orally Active 1 tablet Once a day Results No Known Results Summary Purpose eClinicalWorks Submission
--- OUTSIDE RECORDS SUMMARY | 2017-12-26 13:55 | XMS REPORT ---
:1970 Author Organization [employer] Care Team Providers Name Role Phone Kelton Harp Provider Role Unavailable Allergies, Adverse Reactions, Alerts Substance Reaction Event Type codeine Info Not Available Drug Allergy Problems Problem Type Condition Code Onset Dates Condition Status Problem Colon polyps K63.5 Active Problem Gastro-esophageal reflux disease K21.9 Active without esophagitis Problem Family history of colon cancer Z80.0 Active Problem Pain in left hand M79.642 Active Problem Paresthesia of skin R20.2 Active Problem Pain in right hand M79.641 Active Problem Hyperlipidemia E78.5 Active Problem Benign essential HTN I10 Active Problem Bilateral carpal tunnel syndrome G56.03 Active Problem Pain, joint, hand, right M25.541 Active Assessment Paresthesia of skin R20.2 Active Assessment Pain in right hand M79.641 Active Assessment Carpal tunnel syndrome of left G56.02 Active wrist Assessment Pain in left hand M79.642 Active Assessment Carpal tunnel syndrome of right G56.01 Active wrist Medications Medication Code Code Instructions Start End Status Dosage System Date Date Amlodipine ND 27654049793 5 MG Orally Once Active 1 tablet Besylate a day Nexium ND 54692520405 20 MG Orally Active 1 capsule Once a day Aspir-81 ND 13570511473 81 MG Orally Active 1 tablet Once a day Results No Known Results Summary Purpose eClinicalWorks Submission
--- OUTSIDE RECORDS SUMMARY | 2017-12-26 13:55 | XMS REPORT | Continuity of Care Document ---
:1970 Author Organization Interface Problems Problem Status Onset Classification Date Comments Source Date Reported ANAL SKIN TAGS Active Condition 10/01/2014 [facility] BLEEDING, Active Condition 10/01/2014 Medical RECTAL/ANAL 5 Group INTERNAL Active Condition 10/01/2014 Medical HEMORRHOIDS, 5 Group WITH COMPLICATION COLORECTAL Active Condition 10/01/2014 Medical CANCER 5 Group COLON POLYPS Active Condition 10/01/2014 [facility] Medications Medication Details Route Status Patient Ordering Order Source Instructions Provider Date NEXIUM CPDR Active 08/23/19 [facility] Allergies, Adverse Reactions, Alerts Substance Category Reaction Severity Reaction Status Date Comments Source type Reported Immunizations Immunization Date Given Site Status Last Updated Comments Source Results Order Results Value Reference Date Interpretation Comments Source Name Range Vital Signs Vital Sign Value Date Comments Source Height 71 10/01/2014 Medical Group Weight 160 10/01/2014 Medical Group Temperature Oral (F) 98.2 F 10/01/2014 Medical Group Heart Rate 65 10/01/2014 Medical Group Systolic (mm Hg) 124 10/01/2014 Medical Group Diastolic (mm Hg) 88 10/01/2014 Medical Group Height 71 08/22/2014 Medical Group Weight 162 08/22/2014 Medical Group Temperature Oral (F) 98.3 F 08/22/2014 Medical Group Systolic (mm Hg) 130 08/22/2014 Medical Group Diastolic (mm Hg) 92 08/22/2014 Medical Group Encounters Location Location Encounter Encounter Reason Attending ADM DC Status Source Details Type Number For Provider Date Date Visit [facility] [id number] [facility] 08/22 08/22 [facility] Visit 270 Yomaira prince MD Group Group Surgery [facility] Lab Report [id number] [place]09/14 [place] 190 /2014 Medical Yomaira prince MD Group Group [facility] [id number] [facility] 10/01 10/01 [facility] Visit 180 Will /2014 Medical Medical sMD Group Group Colorectal Surgery Procedures Procedure Code Date Perfomer Comments Source smoking/tobacco 10/01/2014 yes Medical cessation, patient Group education and counseling smoking/tobacco 08/22/2014 yes Medical cessation, patient Group education and counseling
--- OUTSIDE RECORDS SUMMARY | 2017-12-26 13:55 | XMS REPORT | Continuity of Care Document ---
:1970 Author Organization [facility] Care Team Providers Name Role Phone MD Eric, Souleymane Unavailable Unavailable Insurance Providers Payer name Policy type / Coverage Policy ID Covered democrat ID Policy [place] Encounters Encounter Performer Location Date Office Visit Souleymane Reyes MD [facility] [place] Problems Problem Effective Dates Problem Status ANAL [...]
--- OUTSIDE RECORDS SUMMARY | 2017-12-26 13:55 | XMS REPORT | Continuity of Care Document ---
:1970 Author Organization [facility] Care Team Providers Name Role Phone MD Eric, Souleymane Unavailable Unavailable Insurance Providers Payer name Policy type / Coverage Policy ID Covered constitution party ID Policy Little type [place] Encounters Encounter Performer Location Date Lab Report Souleymane Reyes MD [facility] September 14, 2014 Problems Problem Effective Dates Problem Status ANAL [...]
[2017-12-26] MEDS ORDERED: FENTANYL CITR 100 MCG/2 ML ONE (14:51)
[2017-12-26] MEDS ORDERED: NA CHLORIDE 0.9% 1,000 ML ONE (14:51)
[2017-12-26 15:28] LABS: Absolute Lymphocytes (CBC) 2.6 K/uL (0.7-4.9); Absolute Monocytes 0.9 K/uL (0.1-1.3); Absolute Neutrophil 3.7 K/uL (1.8-8.0); Basophils % 0.6 % (0-1.3); Hematocrit 51.1 % (39.6-49.0); Lymphocytes % 34.9 % (15.3-44.8); MCV 87.1 fL (80-100); MPV 8.8 fL (7.6-11.3); Monocytes % 11.7 % (3.3-12.3); RBC Red Blood Cell Count 5.86 M/uL (4.33-5.43)
[2017-12-26 15:36] LABS: Bilirubin Direct 0.2 mg/dL (0-0.2); Bilirubin Total 1.1 mg/dL (0.2-1.0); Potassium 3.9 mmol/L (3.5-5.1); Protein, Total 7.7 g/dL (6.4-8.2)
[2017-12-26 16:48] LABS: Urine Blood NEGATIVE (NEG); Urine Glucose NEGATIVE (NEG); Urine Protein NEGATIVE (NEG)
--- NOTE | 2017-12-26 17:10 | RAD REPORT ---
EXAM DESCRIPTION: CTAbdomen Pelvis W Contrast - 12/26/2017 4:51 pm CLINICAL HISTORY: Abdominal pain. RLQ PAIN COMPARISON: CT ABD PELVIS W CONTRAST dated 12/29/2009 TECHNIQUE: Biphasic CT imaging of the abdomen and pelvis was performed with 100 ml non-ionic IV cont rast. All CT scans are performed using dose optimization technique as appropriate and may include automated exposure control or mA/KV adjustment according to patient size. FINDINGS: Mild linear opacities are present in both posterior lung bases.A small hiatal hernia is pr esent. Mild fatty liver is present. The spleen, pancreas, right adrenal gland are normal. 12 mm left adrenal nodule is present, nonspecific but likely an adenoma. Several benign renal cysts are present without hydronephrosis. No bowel obstruction, free air, free fluid or abscess. The appendix is normal. No evidence of signi ficant lymphadenopathy. No suspicious bony findings. IMPRESSION: No acute intra-abdominal or pelvic finding.
--- NOTE | 2017-12-26 18:05 | ER ---
Nurse's Notes [facility] Name: Arturo Patel Age: 47 yrs Sex: Male : 1970 Arrival Date: 12/26/2017 Time: 13:56 Bed 15 Private MD: Saurabh Alfonso Diagnosis: Unspecified abdominal pain Presentation: 12/26 14:11 Presenting complaint: Patient states: i was here last week for the same hj problem, RLQ abd pain; was told i had renal colic; reports nausea; denies fever and chills, denies diarrhea; visited GI doc today and was referred to a surgeon and was told to come back to the ER;. Transition of care: patient was not received from another setting of care. Onset of symptoms was December 26, 2017. Risk Assessment: Do you want to hurt yourself or someone else? Patient reports no desire to harm self or others. Initial Sepsis Screen: Does the patient meet any 2 criteria? No. Patient's initial sepsis screen is negative. Does the patient have a suspected source of infection? No. Patient's initial sepsis screen is negative. Care prior to arrival: None. 14:11 Method Of Arrival: Ambulatory 14:11 Acuity: JIMBO 3 hj Triage Assessment: 14:14 General: Appears in no apparent distress. uncomfortable, Behavior is calm, cooperative, hj appropriate for age. Pain: Complains of pain in right lower quadrant. Historical: - Allergies: 14:14 Codeine; hj - Home Meds: 14:14 amlodipine oral [Active]; Nexium Oral [Active]; hj - PMHx: 14:14 Hypertension; hj - PSHx: 14:14 None; hj - Immunization history:: Adult Immunizations up to date. - Social history:: Smoking status: Patient/guardian denies using tobacco, Patient uses alcohol, occasionally. - Ebola Screening: : Patient negative for fever greater than or equal to 101.5 degrees Fahrenheit, and additional compatible Ebola Virus Disease symptoms Patient denies exposure to infectious person Patient denies travel to an Ebola-affected area in the 21 days before illness onset. Screenin:15 Abuse screen: Denies threats or abuse. Denies injuries from another. Nutritional hj screening: No deficits noted. Tuberculosis screening: No symptoms or risk factors identified. Fall Risk None identified. Assessment: 14:30 General: Appears in no apparent distress. comfortable, Behavior is calm, cooperative. em Pain: Complains of pain in right lower quadrant Pain currently is 3 out of 10 on a pain scale. at worst was 10 out of 10 on a pain scale. Aggravated by movement. Neuro: Level of Consciousness is awake, alert, obeys commands, Oriented to person, place, time, situation. Cardiovascular: Capillary refill < 3 seconds Patient's skin is warm and dry. Respiratory: Airway is patent Respiratory effort is even, unlabored, Respiratory pattern is regular, symmetrical. GI: Abdomen is flat, Bowel sounds present X 4 quads. Abd is soft X 4 quads Abdomen is tender to palpation in right lower quadrant Abdomen has rebound tenderness in right lower quadrant. : No signs and/or symptoms were reported regarding the genitourinary system. EENT: No signs and/or symptoms were reported regarding the EENT system. Derm: Skin is intact, Skin is pink, warm \T\ dry. Musculoskeletal: Range of motion:. 14:40 Reassessment: Patient appears in no apparent distress at this time. I agree with the sv above assessment. 15:30 Reassessment: Patient appears in no apparent distress at this time. Patient and/or em family updated on plan of care and expected duration. Pain level reassessed. Patient is alert, oriented x 3, equal unlabored respirations, skin warm/dry/pink. Patient states feeling better. 16:19 Reassessment: Patient appears in no apparent distress at this time. Patient and/or em family updated on plan of care and expected duration. Pain level reassessed. Patient is alert, oriented x 3, equal unlabored respirations, skin warm/dry/pink. pending CT. 17:00 Reassessment: Patient appears in no apparent distress at this time. Patient and/or em family updated on plan of care and expected duration. Pain level reassessed. Patient is alert, oriented x 3, equal unlabored respirations, skin warm/dry/pink. pt request medication, provider notified. Vital Signs: 14:15 BP 133 / 94; Pulse 70; Resp 18; Temp 97.8(TE); Pulse Ox 98% on R/A; Weight 82.55 kg; hj Height 5 ft. 11 in. (180.34 cm); Pain 10/10; 15:06 BP 134 / 89; Pulse 52; Resp 17; Pulse Ox 97% on R/A; mh5 16:19 BP 129 / 100; Pulse 58; Resp 16; Pulse Ox 99% on R/A; Pain 2/10; em 17:00 BP 132 / 90; Pulse 58; Resp 16; Pulse Ox 97% on R/A; Pain 7/10; em 17:52 BP 118 / 94; Pulse 55; Resp 18; Pulse Ox 99% on R/A; mg2 14:15 Body Mass Index 25.38 (82.55 kg, 180.34 cm) hj ED Course: 13:56 Patient arrived in ED. rg4 13:56 Saurabh Alfonso DO is Private Physician. rg4 14:14 Triage completed. hj 14:15 Arm band placed on right wrist. hj 14:15 Patient has correct armband on for positive identification. Placed in gown. Bed in low hj position. Call light in reach. Side rails up X 1. 14:17 Sergio Grant LVN is Primary Nurse. em 14:20 Darryl Geller NP is PHCP. pm1 14:20 Jessee Adams MD is Attending Physician. pm1 14:40 Initial lab(s) drawn, by me, sent to lab. Inserted saline lock: 20 gauge in right em antecubital area, using aseptic technique. Blood collected. 16:07 No provider procedures requiring assistance completed. Urine collected: clean catch em specimen, clear. 16:[address] via wheelchair. sv 16:51 CT Abd/Pelvis - W/Contrast: PO and IV contrast In Process Unspecified. EDMS 16:58 Patient moved back from CT. sv 18:04 Saurabh Alfonso DO is Referral Physician. pm1 18:16 IV discontinued, intact, bleeding controlled, No redness/swelling at site. Pressure mg2 dressing applied. Administered Medications: 14:49 Drug: NS 0.9% 1000 ml Route: IV; Rate: 1000 ml; Site: right antecubital; sv 16:07 Follow up: IV Status: Completed infusion; IV Intake: 1000ml em 14:49 Drug: fentaNYL (PF) 25 mcg Route: IVP; Site: right antecubital; iw 16:07 Follow up: Response: No adverse reaction; Pain is decreased em 17:02 Drug: fentaNYL (PF) 25 mcg Route: IVP; Site: right antecubital; em Intake: 14:47 PO: 500ml (Contrast); Total: 500ml. sv 16:07 IV: 1000ml; Total: 1500ml. em 14:[address] sv Outcome: 18:04 Discharge ordered by . pm1 18:17 Discharged to home ambulatory, with family. mg2 18:17 Condition: stable 18:17 Discharge instructions given to patient, family, Instructed on discharge instructions, follow up and referral plans. Demonstrated understanding of instructions, follow-up care. 18:21 Patient left the ED. mg2 Signatures: Dispatcher [employer] Rianna Anderson, LAURA RN sv Sergio Grant, EMPLOYEE BENEFITS DIRECTOR EMPLOYEE BENEFITS DIRECTOR em Andria Orlando RN RN Yvon Betancourt RN RN Darryl Geller NP [employer] pm1 [place] Moon [facility] Aidan Morgan RN RN mg2 Corrections: (The following items were deleted from the chart) 14:17 14:15 Pulse 70bpm; Resp 18bpm; Pulse Ox 98% RA; Temp 97.8F Temporal; 82.55 kg; Height 5 hj ft. 11 in.; BMI: 25.3; Pain 10/10; hj 16:25 16:19 BP 136 / 55; Pulse 58bpm; Resp 16bpm; Pulse Ox 99% RA; Pain 2/10; em em
--- NOTE | 2017-12-26 18:05 | EDPHYS ---
Physician Documentation [facility] Name: Arturo Patel Age: 47 yrs Sex: Male : 1970 Arrival Date: 12/26/2017 Time: 13:56 Bed 15 Private MD: Kaden [facility] ED Physician Jessee Adams HPI: 12/26 16:07 This 47 yrs old Male presents to ER via Ambulatory with complaints of RLQ pm1 pain. 16:07 The patient presents with abdominal pain right lower quadrant. pm1 16:07 Onset: The symptoms/episode began/occurred 5 day(s) ago. The symptoms do not radiate. pm1 16:07 Associated signs and symptoms: Pertinent negatives: nausea, vomiting, and diarrhea, pm1 chest pain, dysuria, fever, headache, shortness of breath. The symptoms are described as sharp. Modifying factors: the symptoms are aggravated by walking, Moving right leg. Severity of pain: in the emergency department the pain is unchanged. The patient has not experienced similar symptoms in the past. The patient has been recently seen by a physician: DONTE Mesa in [place] with similar presenting complaints, Peter contacted Dr. Arroyo and patient was instructed to report to the ER for repeat CT scan and lab work to evaluate his appendix. Patient was seen here 5 days ago and discharged home after CT scan was negative for acute findings. Patient went to [facility] in the [facility] and was discharged home after CT scan was negative for acute findings also. Historical: - Allergies: 14:14 Codeine; hj - Home Meds: 14:14 amlodipine oral [Active]; Nexium Oral [Active]; hj - PMHx: 14:14 Hypertension; hj - PSHx: 14:14 None; hj - Immunization history:: Adult Immunizations up to date. - Social history:: Smoking status: Patient/guardian denies using tobacco, Patient uses alcohol, occasionally. - Ebola Screening: : Patient negative for fever greater than or equal to 101.5 degrees Fahrenheit, and additional compatible Ebola Virus Disease symptoms Patient denies exposure to infectious person Patient denies travel to an Ebola-affected area in the 21 days before illness onset. ROS: 16:07 Constitutional: Negative for fever, chills, and weight loss, Eyes: Negative for injury, pm1 pain, redness, and discharge, ENT: Negative for injury, pain, and discharge, Neck: Negative for injury, pain, and swelling, Cardiovascular: Negative for chest pain, palpitations, and edema, Respiratory: Negative for shortness of breath, cough, wheezing, and pleuritic chest pain. 16:07 Back: Negative for injury and pain, : Negative for injury, bleeding, discharge, and swelling, MS/Extremity: Negative for injury and deformity, Skin: Negative for injury, rash, and discoloration, Neuro: Negative for headache, weakness, numbness, tingling, and seizure. 16:07 Abdomen/GI: Positive for abdominal pain, Negative for nausea, vomiting, and diarrhea. Exam: 16:07 Constitutional: This is a well developed, well nourished patient who is awake, alert, pm1 and in no acute distress. Head/Face: Normocephalic, atraumatic. Eyes: Pupils equal round and reactive to light, extra-ocular motions intact. Lids and lashes normal. Conjunctiva and sclera are non-icteric and not injected. Cornea within normal limits. Periorbital areas with no swelling, redness, or edema. ENT: Nares patent. No nasal discharge, no septal abnormalities noted. Tympanic membranes are normal and external auditory canals are clear. Oropharynx with no redness, swelling, or masses, exudates, or evidence of obstruction, uvula midline. Mucous membranes moist. Neck: Trachea midline, no thyromegaly or masses palpated, and no cervical lymphadenopathy. Supple, full range of motion without nuchal rigidity, or vertebral point tenderness. No Meningismus. Chest/axilla: Normal chest wall appearance and motion. Nontender with no deformity. No lesions are appreciated. Cardiovascular: Regular rate and rhythm with a normal S1 and S2. No gallops, murmurs, or rubs. Normal PMI, no JVD. No pulse deficits. Respiratory: Lungs have equal breath sounds bilaterally, clear to auscultation and percussion. No rales, rhonchi or wheezes noted. No increased work of breathing, no retractions or nasal flaring. 16:07 Back: No spinal tenderness. No costovertebral tenderness. Full range of motion. Skin: Warm, dry with normal turgor. Normal color with no rashes, no lesions, and no evidence of cellulitis. MS/ Extremity: Pulses equal, no cyanosis. Neurovascular intact. Full, normal range of motion. 16:07 Abdomen/GI: Inspection: abdomen appears normal, Bowel sounds: normal, Palpation: soft, mild abdominal tenderness, in the right lower quadrant, mass, is not appreciated, rebound tenderness, is not appreciated, Indicators: Rovsing's sign is negative, Obturator sign is positive, Psoas sign is negative. 16:07 Neuro: Orientation: is normal, Motor: moves all fours. Vital Signs: 14:15 BP 133 / 94; Pulse 70; Resp 18; Temp 97.8(TE); Pulse Ox 98% on R/A; Weight 82.55 kg; hj Height 5 ft. 11 in. (180.34 cm); Pain 10/10; 15:06 BP 134 / 89; Pulse 52; Resp 17; Pulse Ox 97% on R/A; mh5 16:19 BP 129 / 100; Pulse 58; Resp 16; Pulse Ox 99% on R/A; Pain 2/10; em 17:00 BP 132 / 90; Pulse 58; Resp 16; Pulse Ox 97% on R/A; Pain 7/10; em 17:52 BP 118 / 94; Pulse 55; Resp 18; Pulse Ox 99% on R/A; mg2 14:15 Body Mass Index 25.38 (82.55 kg, 180.34 cm) MDM: 14:22 Patient medically screened. pm1 17:27 Data reviewed: vital signs. Data interpreted: Pulse oximetry: on room air is 97 %. pm1 Interpretation: normal. Physician consultation: Vicente Arroyo MD was called at 17:28, was contacted at 17:28, regarding patient's condition, CT and lab results, will come to see the patient in the ER. 18:04 Physician consultation: Vicente Arroyo MD in the emergency department to see patient at pm1 17:50. 18:04 ED course: Patient evaluated by Dr Arroyo and he discussed findings with patient. pm1 Recommended follow up with his PCP and to use NSAIDs along with heating pads. 12/26 14:22 Order name: Basic Metabolic Panel; Complete Time: 15:37 pm1 12/26 14:22 Order name: CBC with Diff; Complete Time: 15:37 pm1 12/26 14:22 Order name: Hepatic Function; Complete Time: 15:37 pm1 12/26 14:22 Order name: Lipase; Complete Time: 15:37 pm1 12/26 16:26 Order name: Urine Dipstick--Ancillary (enter results); Complete Time: 16:50 bd 12/26 14:22 Order name: IV Saline Lock; Complete Time: 14:43 pm1 12/26 14:22 Order name: Labs collected and sent; Complete Time: 14:43 pm1 12/26 14:22 Order name: Urine Dipstick-Ancillary (obtain specimen); Complete Time: 16:07 pm1 12/26 14:36 Order name: CT Abd/Pelvis - W/Contrast: PO and IV contrast; Complete Time: 17:14 pm1 Administered Medications: 14:49 Drug: NS 0.9% 1000 ml Route: IV; Rate: 1000 ml; Site: right antecubital; 16:07 Follow up: IV Status: Completed infusion; IV Intake: 1000ml em 14:49 Drug: fentaNYL (PF) 25 mcg Route: IVP; Site: right antecubital; 16:07 Follow up: Response: No adverse reaction; Pain is decreased em 17:02 Drug: fentaNYL (PF) 25 mcg Route: IVP; Site: right antecubital; em Disposition: 12/27 06:36 Co-signature as Attending Physician, Jessee Adams MD I agree with the assessment and lis plan of care. Disposition: 12/26/17 18:04 Discharged to Home. Impression: Unspecified abdominal pain. - Condition is Stable. - Discharge Instructions: Abdominal Pain, Adult. - Medication Reconciliation Form, Thank You Letter, Antibiotic Education, Prescription Opioid Use, Work release form form. - Follow up: Emergency Department; When: As needed; Reason: Worsening of condition. Follow up: [facility] Kaden; When: 2 - 3 days; Reason: Recheck today's complaints, Continuance of care, Re-evaluation by your physician. - Problem is new. - Symptoms have improved. Signatures: Dispatcher [employer] Rianna Anderson RN RN sv Anderson, Corey, MD MD cha Munoz, Edgar, PATTERN GATER PATTERN GATER em Andria Orlando RN RN iw Yvon Betancourt RN Darryl Vaughan, CERTIFIED MEDICINE AIDE CERTIFIED MEDICINE AIDE pm1 Aidan Morgan RN LAURA mg2 Corrections: (The following items were deleted from the chart) 12/26 17:42 14:23 UA MICROSCOPIC+U.LAB.BRZ ordered. EDMS EDMS 18:21 18:04 12/26/2017 18:04 Discharged to Home. Impression: Unspecified abdominal pain. mg2 Condition is Stable. Forms are Medication Reconciliation Form, Thank You Letter, Antibiotic Education, Prescription Opioid Use. Follow up: Emergency Department; When: As needed; Reason: Worsening of condition. Follow up: [facility] Alfonso; When: 2 - 3 days; Reason: Recheck today's complaints, Continuance of care, Re-evaluation by your physician. Problem is new. Symptoms have improved. pm1
== END 2017-12-26 18:21 | disposition home or self-care (01) ==
LOC: ER 13:52
DX: R10.31 Right lower quadrant pain (principal); I10 Essential (primary) hypertension; Z88.5 Allergy status to narcotic agent
CPT/HCPCS: 36415; 74177; 80048; 80076; 81003; 83690; 85025; 96361; 96374; 99284; J3010; J7030; Q9967

== ENCOUNTER 2021-12-06 13:43 | Emergency (ER) | payer BC ==
--- OUTSIDE RECORDS SUMMARY | 2021-12-06 13:46 | XMS REPORT | Continuity of Care Document ---
:1970 Author Organization [facility] t Address [address] [place] [address] Care Team Providers Name Role Phone Saurabh Alfonso Attending Clinician Unavailable Saurabh Alfonso Admitting Clinician Unavailable Problems This patient has no known problems. Allergies, Adverse Reactions, Alerts Allergy Allergy Status Severity Reaction(s) Onset Inactive Treating Comm ents Source Name Type Date Date Clinician codeine Adverse Active Info Not Common Reaction Available [facility] Medications Ordered Filled Start Stop Current Ordering Indication Dosage Frequency Signature Comments Components Source Medication Medication Date Date Medication? Clinician (SIG) Name Name Amlodipine Amlodipine Yes Saurabh 1 tablet Common Besylate Besylate [facility] Nexium Nexium Yes Saurabh 1 capsule Comm on [facility] Aspir-81 Aspir-81 Yes Saurabh 1 tablet C ommon [facility] Procedures This patient has no known procedures. Encounters Start End Encounter Admission Attending Care Care Encounter Source Date/Time Date/Time Type Type Clinicians Facility Department ID 2021-11-17 Outpatient Alfonso, [facility] [id number] Common 10:48:[address] [facility] 2021-11-[address] [facility] [id number] Common 13:43:[address] [facility] 2021-10-05 Outpatient Alfonso, [facility] [id number] Common 15:03:[address] [facility] 2021-05-18 Outpatient Alfonso, [facility] [id number] Common 16:09:[address] [facility] 2021-05-12 Outpatient Alfonso, [facility] [id number] Common 12:48:[address] [facility] 2021-05-12 Outpatient Alfonso, [facility] [id number] Common 11:58:[address] [facility] 2021-05-12 Outpatient Alfonso, [facility] [id number] Common 11:53:03 Saurabh [id number] [facility] 2021-05-12 Outpatient Alfonso, [facility] [id number] Common 11:33:09 Saurabh [id number] [facility] 2021-05-12 Outpatient Alfonso, [facility] [id number] Common 11:32:59 Saurabh [id number] [facility] 2021-05-12 Outpatient Alfonso, [facility] [id number] Common 11:18:34 Saurabh [id number] [facility] 2021-05-12 Outpatient Alfonso, [facility] [id number] Common 11:18:30 Saurabh [id number] [facility] 2021-11-01 2021-11-01 ambulatory [facility] [id number] Common 00:00:00 00:00:[address] [facility] 2021-10-29 2021-10-29 ambulatory [facility] [id number] Common 00:00:00 00:00:[address] [facility] 2021-08-30 2021-08-30 ambulatory [facility] [id number] Common 00:00:00 00:00:[address] [facility] 2021-08-13 2021-08-13 ambulatory [facility] [id number] Common 00:00:00 00:00:[address] [facility] 2021-06-14 2021-06-14 ambulatory [facility] [id number] Common 00:00:00 00:00:[address] [facility] 2021-05-18 2021-05-18 ambulatory [facility] [id number] Common 00:00:00 00:00:[address] [facility] 2021-02-24 2021-02-24 ambulatory [facility] [id number] Common 00:00:00 00:00:[address] [facility] 2021-02-23 2021-02-23 ambulatory [facility] [id number] Common 00:00:00 00:00:[address] [facility] 2021-02-23 2021-02-23 ambulatory [facility] [id number] Common 00:00:00 00:00:[address] [facility] 2021-02-16 2021-02-16 ambulatory [facility] [id number] Common 00:00:00 00:00:[address] [facility] 2021-01-19 2021-01-19 Outpatient [facility] [id number] Common 00:00:00 00:00:[address] [facility] 2020-07-22 2020-07-22 Outpatient [facility] [id number] Common 00:00:00 00:00:[address] [facility] 2020-04-30 2020-04-30 Outpatient [facility] [id number] Common 00:00:00 00:00:[address] [facility] 2020-04-29 2020-04-29 Outpatient [facility] [id number] Common 00:00:00 00:00:[address] [facility] 2020-01-22 2020-01-22 Outpatient [facility] [id number] Common 00:00:00 00:00:[address] [facility] 2019-11-11 2019-11-11 [facility] [id number] Common 09:30:00 09:30:00 [facility] 2019-02-04 2019-02-04 [facility] [id number] Common 11:15:00 11:15:[address] [facility] 2019-01-29 2019-01-29 [facility] [id number] Common 11:09:00 11:09:[address] [facility] 2018-11-02 2018-11-02 [facility] [id number] Common 10:15:00 10:15:[address] [facility] 2018-04-30 2018-04-30 [facility] [id number] Common 15:00:00 15:00:[address] [facility] 2018-04-27 2018-04-27 [facility] [id number] Common 10:30:00 10:30:[address] [facility] 2018-04-20 2018-04-20 [facility] [id number] Common 09:30:00 09:30:[address] [facility] 2017-12-20 2017-12-20 [facility] [id number] Common 08:00:00 08:00:00 [facility] 2017-12-06 2017-12-06 [facility] [id number] Common 15:45:00 15:45:[address] [facility] Results This patient has no known results.
--- NOTE | 2021-12-06 14:52 | RAD REPORT ---
EXAM DESCRIPTION: CT - Lower Extremity W/ Cont - 12/06/2021 2:28 pm CLINICAL HISTORY: Leg injury with leg pain COMPARISON: None. TECHNIQUE: Computed axial tomography obtained from right knee to the right foot. Coronal and sagitta l reconstruction performed. 100 cc Isovue [address] scans are performed using dose optimization technique as appropriate and may include automated exposure control or mA/KV adjustment according to patient size. FINDINGS: No fracture is seen. Stranding is present within medial subcutaneous tissues. Ill-defined fluid within the medial subcutan eous tissue of the ankle. A hematoma is not seen. Muscles are normal size and density. IMPRESSION: No fracture is seen Stranding within the medial subcutaneous tissues may indicate a contusion in the setting of trauma. Ill-defined fluid within the medial subcutaneous tissues of the ankle the ankle A hematoma is not seen If the patient's symptoms do not improve then MRI may be helpful for further evaluation
--- NOTE | 2021-12-06 15:21 | EDPHYS ---
Physician Documentation [facility] Name: Arturo Patel Age: 51 yrs Sex: Male : 1970 Arrival Date: 12/06/2021 Time: 13:45 Bed 19 Private MD: ED Physician Serafin Mills HPI: 12/06 16:33 This 51 yrs old Male presents to ER via Ambulatory with complaints of Leg Pain. kb 16:33 The patient presents with an abrasion, an injury, pain, swelling, tenderness. The kb complaints affect the right rick and right calf. Context: The problem was sustained outdoors, resulted from a direct blow, the patient is not able to bear weight, the patient is not able to ambulate, Problem is a result from a previous injury: No. Onset: The symptoms/episode began/occurred 2 day(s) ago. Modifying factors: The symptoms are alleviated by nothing. the symptoms are aggravated by weight bearing. Associated signs and symptoms: Pertinent positives: swelling, Pertinent negatives calf tenderness, fever, nausea, numbness, rash, tingling, vomiting, warmth, weakness. Treatment prior to arrival includes: no previous treatment. Severity of symptoms: At their worst the symptoms were moderate, in the emergency department the symptoms are unchanged. The patient has not experienced similar symptoms in the past. The patient has not recently seen a physician. 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 Reports abrasion to right rick with tenderness and swelling to entire lower leg including calf. Reports pain when walking. . Historical: - Allergies: 13:55 Codeine; kb3 - Home Meds: 13:55 amlodipine oral [Active]; Nexium Oral [Active]; kb3 - PMHx: 13:55 Hypertension; GERD; kb3 - PSHx: 13:55 Left ACL Repair; Right Shoulder Sx; kb3 - Immunization history:: Adult Immunizations up to date, Client reports having NOT received the Covid vaccine. Last tetanus immunization: up to date. - Social history:: Smoking status: Patient denies any tobacco usage or history of. Patient uses alcohol, occasionally. Patient/guardian denies using street drugs. ROS: 16:30 Constitutional: Negative for fever, chills, and weight loss. kb 16:30 MS/extremity: Positive for abrasion, pain, swelling, tenderness, of the lateral aspect of right calf, right calf, medial aspect of right calf and right rick. 16:30 All other systems are negative. Exam: 16:32 Constitutional: This is a well developed, well nourished patient who is awake, alert, kb and in no acute distress. Head/Face: Normocephalic, atraumatic. ENT: Moist Mucous membranes Cardiovascular: Regular rate and rhythm with a normal S1 and S2. No gallops, murmurs, or rubs. No pulse deficits. Respiratory: Respirations even and unlabored. No increased work of breathing. Talking in full sentences Neuro: Awake and alert, GCS 15, oriented to person, place, time, and situation. Moves all extremities. Normal gait. Psych: Awake, alert, with orientation to person, place and time. Behavior, mood, and affect are within normal limits. 16:32 Musculoskeletal/extremity: Extremities: grossly normal except: noted in the lateral aspect of right calf, right calf, medial aspect of right calf and right rick: abrasion, pain, swelling, tenderness, ROM: intact in all extremities, Circulation is intact in all extremities. Sensation intact. Weight bearing: able to fully bear weight. 16:32 Skin: injury, abrasion(s), large abrasion noted, of the right rick. Vital Signs: 13:53 BP 156 / 108; Pulse 100; Resp 20; Temp 98.6; Pulse Ox 100% ; Weight 88.45 kg; Height 5 kb3 ft. 11 in. (180.34 cm); Pain 10/10; 14:45 BP 159 / 103; Pulse 82; Resp 18; Pulse Ox 97% ; Pain 2/10; mb8 13:53 Body Mass Index 27.20 (88.45 kg, 180.34 cm) kb3 MDM: 14:01 Patient medically screened. kb 16:30 Data reviewed: vital signs, nurses notes. Data interpreted: Pulse oximetry: on room air kb is 97 %. Interpretation: normal. Counseling: I had a detailed discussion with the patient and/or guardian regarding: the historical points, exam findings, and any diagnostic results supporting the discharge/admit diagnosis, radiology results, the need for outpatient follow up, a family practitioner, to return to the emergency department if symptoms worsen or persist or if there are any questions or concerns that arise at home. 12/06 15:23 Order name: CREATININE WHOLE BLOOD; Complete Time: 15:24 EDMS 12/06 14:14 Order name: Lower Extremity W/ Cont; Complete Time: 14:53 EDMS Administered Medications: No medications were administered Disposition: 16:38 Co-signature as Attending Physician, Serafin Mills MD. rn Disposition Summary: 12/06/21 15:21 Discharge Ordered Location: Home kb Condition: Stable kb Diagnosis - Contusion of right lower leg kb - Abrasion of lower leg kb Followup: kb - With: Emergency Department - When: As needed - Reason: Worsening of condition Followup: kb - With: Private Physician - When: 2 - 3 days - Reason: Recheck today's complaints, Continuance of care, Re-evaluation by your physician Discharge Instructions: - Discharge Summary Sheet kb - Contusion, [id number] kb - Abrasion, [id number] kb Forms: - Medication Reconciliation Form kb - Thank You Letter kb - Antibiotic Education kb - Prescription Opioid Use kb Prescriptions: - Cephalexin 500 mg Oral Capsule - take 1 capsule by ORAL route every 8 hours for 10 days; 30 capsule; Refills: 0, kb Product Selection Permitted Signatures: Dispatcher [employer] EDMS Letitia Kumar, CARTON FORMING MACHINE TENDER-C CARTON FORMING MACHINE TENDER-Ckb Serafin Mills MD MD rn Bradberry, Kelly, RN RN kb3 Corrections: (The following items were deleted from the chart) 13:58 13:55 Home Meds: lisinopril 5 mg Oral tab; kb3 kb3
--- NOTE | 2021-12-06 15:21 | ER ---
Nurse's Notes [facility] Name: Arturo Patel Age: 51 yrs Sex: Male : 1970 Arrival Date: 12/06/2021 Time: 13:45 Bed 19 Private MD: Diagnosis: Contusion of right lower leg;Abrasion of lower leg Presentation: 12/06 13:53 Chief complaint: Patient states: Pt reports he was hit across the right lower leg with kb3 a spot washer hose 2 days [employer] and is experiencing ongoing pain in the right calf area. Abrasion across right lower leg noted, healing. Coronavirus screen: Vaccine status: Patient reports being unvaccinated. Client denies travel out of the [place] in the last 14 days. At this time, the client does not indicate any symptoms associated with coronavirus-19. Ebola Screen: Patient negative for fever greater than or equal to 101.5 degrees Fahrenheit, and additional compatible Ebola Virus Disease symptoms Patient denies exposure to infectious person. Patient denies travel to an Ebola-affected area in the 21 days before illness onset. No symptoms or risks identified at this time. Initial Sepsis Screen: Does the patient have a suspected source of infection? No. Patient's initial sepsis screen is negative. Risk Assessment: Do you want to hurt yourself or someone else? Patient reports no desire to harm self or others. Onset of symptoms was December 04, 2021. 13:53 Method Of Arrival: Ambulatory 3 13:53 Acuity: JIMBO 4 kb3 15:45 Initial Sepsis Screen: Does the patient meet any 2 criteria? No. Patient's initial mb8 sepsis screen is negative. Triage Assessment: 13:55 General: Appears in no apparent distress. Behavior is calm, cooperative. Pain: kb3 Complains of pain in medial aspect of right calf Pain does not radiate. Pain currently is 10 out of 10 on a pain scale. Quality of pain is described as burning, sharp. Historical: - Allergies: 13:55 Codeine; kb3 - Home Meds: 13:55 amlodipine oral [Active]; Nexium Oral [Active]; kb3 - PMHx: 13:55 Hypertension; GERD; kb3 - PSHx: 13:55 Left ACL Repair; Right Shoulder Sx; kb3 - Immunization history:: Adult Immunizations up to date, Client reports having NOT received the Covid vaccine. Last tetanus immunization: up to date. - Social history:: Smoking status: Patient denies any tobacco usage or history of. Patient uses alcohol, occasionally. Patient/guardian denies using street drugs. Screenin:45 Abuse screen: Denies threats or abuse. Denies injuries from another. mb8 14:46 Nutritional screening: No deficits noted. Tuberculosis screening: No symptoms or risk mb8 factors identified. Fall Risk None identified. Assessment: 14:44 General: Appears in no apparent distress. comfortable, Behavior is calm, cooperative, mb8 appropriate for age. Pain: Complains of pain in right leg Pain does not radiate. Pain currently is 2 out of 10 on a pain scale. at worst was 10 out of 10 on a pain scale. level that patient reports is acceptable is 2 out of 10 on a pain scale. Quality of pain is described as throbbing, Pain began 12/04/21. Cardiovascular: Pulses are all present. Musculoskeletal: No deficits noted. Vital Signs: 13:53 BP 156 / 108; Pulse 100; Resp 20; Temp 98.6; Pulse Ox 100% ; Weight 88.45 kg; Height 5 kb3 ft. 11 in. (180.34 cm); Pain 10/10; 14:45 BP 159 / 103; Pulse 82; Resp 18; Pulse Ox 97% ; Pain 2/10; mb8 13:53 Body Mass Index 27.20 (88.45 kg, 180.34 cm) kb3 ED Course: 13:45 Patient arrived in ED. rg4 13:51 Letitia Kumar FNP-C [facility]. kb 13:51 Serafin Mills MD is Attending Physician. kb 13:55 Triage completed. kb3 13:55 Arm band placed on right wrist. kb3 14:15 Inserted saline lock: 20 gauge in right forearm, using aseptic technique. Blood dh3 collected. 14:30 Lower Extremity W/ Cont In Process Unspecified. EDMS 14:37 Andrea Kunz RN is Primary Nurse. mb8 14:46 Awaiting radiology results. mb8 14:46 Patient has correct armband on for positive identification. mb8 14:46 No provider procedures requiring assistance completed. mb8 15:45 IV discontinued, intact, bleeding controlled, No redness/swelling at site. Pressure mb8 dressing applied. Administered Medications: No medications were administered Medication: 15:45 VIS not applicable for this client. mb8 Outcome: 15:21 Discharge ordered by . rubina 15:44 Discharged to home ambulatory. mb8 15:44 Condition: stable 15:44 Condition: stable 15:44 Discharge instructions given to patient, Instructed on discharge instructions, follow up and referral plans. medication usage, Demonstrated understanding of instructions, follow-up care, medications, Prescriptions given X 1. 15:46 Patient left the ED. mb8 Signatures: Dispatcher [employer] EDMS Letitia Kumar, ENVIRONMENTAL HEALTH TECHNICIAN-C ENVIRONMENTAL HEALTH TECHNICIAN-[place] Ortega rg4 Courtney Vee 3 Naty Kimbrough RN RN kb3 Andrea Kunz, RN RN mb8 Corrections: (The following items were deleted from the chart) 13:58 13:55 Home Meds: lisinopril 5 mg Oral tab; kb3 kb3
[2021-12-06 16:05] VITALS: TEMP 98.6
[2021-12-06 16:08] VITALS: BP 159/103; O2SAT 97
== END 2021-12-06 15:46 | disposition home or self-care (01) ==
LOC: ER 13:43
DX: S80.811A Abrasion, right lower leg, initial encounter (principal); S80.11XA Contusion of right lower leg, initial encounter; I10 Essential (primary) hypertension; Z88.5 Allergy status to narcotic agent
CPT/HCPCS: 82565; 73701; Q9967; 99284

== ENCOUNTER 2024-11-27 04:21 | Emergency (ER) | payer BC ==
--- OUTSIDE RECORDS SUMMARY | 2024-11-27 04:25 | XMS REPORT | Continuity of Care Document ---
Author Name Unknown Address [address] [facility] [address] [place] [address] [facility] Address [address] [facility] [address] [place] [address] Care Team Providers Care Behavioral Health Care Manager Name Role Phone Saurabh Alfonso Attending Clinician Unavailable Saurabh Alfonso Admitting Clinician Unavailable Payers Payer Name Policy Type Policy Number Effective Date Expirati on Date Source [place] [address] [id number] 2019 00:00:00 [facility] Problems Condition Name Condition Details Condition Category Status Onset Date Resolution Date Last Treatment Date Treating Clinician Comments Source Sleep apnea Other sleep apnea Problem [facility] Polycythem ia vera Polycythem ia vera Problem [facility] [id number] Dependence on other enabling machines and devices Problem [facility] [id number] Obstructiv e sleep apnea (adult) (pediatric ) Problem [facility] [id number] Mixed hyperlipid emia Problem [facility] [id number] Carpal tunnel syndrome of left wrist Problem [facility] [id number] Right carpal tunnel syndrome Problem [facility] [id number] Vitamin D deficiency Problem [facility] Family history of malignant neoplasm of gastrointe stinal tract Family history of colon cancer Problem [facility] Gastro-eso phageal reflux disease without esophagiti s Gastro-eso phageal reflux disease without esophagiti s Problem [facility] Essential hypertensi on Essential (primary) hypertensi on Problem [facility] [id number] Pain in left hand Problem [facility] Benign neoplasm of colon Colon polyps Problem [facility] [id number] Pain in right hand Problem [facility] Hyperlipid emia Hyperlipid emia Problem [facility] [id number] Pain, joint, hand, right Problem [facility] [id number] Bilateral carpal tunnel syndrome Problem [facility] [id number] Paresthesi a of skin Problem [facility] [id number] Unable to concentrat e Problem [facility] [id number] Memory change Problem [facility] Allergies, Adverse Reactions, Alerts Allergy Name Allergy Type Status Severity Reaction(s) Onset Date Inactive Date Treating Clinician Comments Source Codeine Codeine Active Unknown [facility] Social History Social Habit Start Date Stop Date Quantity Comments Source History of Tobacco Use [facility] Sex Assigned At [facility] Smoking Status Start Date Stop Date Source Never Smoker [facility] Former Smoker 2022-07-01 00:00:00 2022-07-01 00:00:00 [facility] Medications Ordered Medication Name Filled Medication Name Start Date Stop Date Current Medication? Ordering Clinician Indication Dosage Frequency Signature (SIG) Comments Components Source Ergocalcife rol 1.25 MG (42752 UT) Ergocalcife rol 1.25 MG (69737 UT) 4-15 00:00: 00 No 1{capsu le} Ergocalcif tala 1.25 MG (74255 UT) Losartan Potassium-H CTZ 50-12.5 MG Losartan Potassium-H CTZ 50-12.5 MG 07-16 00:00: 00 No 1{table t} QD Losartan Potassium- HCTZ 50-12.5 MG NexIUM 20 MG NexIUM 20 MG No 1{capsu le} QD NexIUM 20 MG Aspir-81 81 MG Aspir-81 81 MG No 1{table t} QD Aspir-81 81 MG Vital Signs Vital Name Observation Time Observation Value Comments S giselce height 2024-07-30 10:00:00 71 [in_i] [facility] weight 2024-07-30 10:00:00 220 [lb_av] Comm on [facility] bmi 2024-07-30 10:00:00 30.68 kg/m2 [facility] blood pressure systolic 2024-07-30 10:00:00 134 mm[Hg] Common [facility] blood pressure diastolic 2024-07-30 10:00:00 86 mm[Hg] [facility] height 2024-07-16 14:00:00 71 [in_i] [facility] weight 2024-07-16 14:00:00 220.4 [lb_av] Co mmon [facility] temperature 2024-07-16 14:00:00 97.6 [degF] Com mon [facility] bmi 2024-07-16 14:00:00 30.74 kg/m2 [facility] oximetry 2024-07-16 14:00:00 97 % [facility] respiratory rate 2024-07-16 14:00:00 16 /min Common [facility] blood pressure systolic 2024-07-16 14:00:00 134 mm[Hg] [facility] blood [facility] diastolic 2024-07-16 14:00:00 86 mm[Hg] Common [facility] height 2023-08-11 09:50:00 71 [in_i] [facility]mo n [facility] weight 2023-08-11 09:50:00 207.0 [lb_av] Co mmon [facility] temperature 2023-08-11 09:50:00 97.8 [degF] Com [facility] bmi 2023-08-11 09:50:00 28.87 kg/m2 Comm on [facility] oximetry 2023-08-11 09:50:00 96 % [facility] respiratory rate 2023-08-11 09:50:00 17 /min Common [facility] blood pressure systolic 2023-08-11 09:50:00 127 mm[Hg] Common [facility] blood pressure diastolic 2023-08-11 09:50:00 76 mm[Hg] Common [facility] height 2023-08-11 09:50:00 71 [in_i] Commo n [facility] weight 2023-08-11 09:50:00 207.0 [lb_av] Co [facility] temperature 2023-08-11 09:50:00 97.8 [degF] Com [facility] bmi 2023-08-11 09:50:00 28.87 kg/m2 Comm on [facility] oximetry 2023-08-11 09:50:00 96 % [facility] respiratory rate 2023-08-11 09:50:00 17 /min Common [facility] blood pressure systolic 2023-08-11 09:50:00 127 mm[Hg] Common [facility] blood pressure diastolic 2023-08-11 09:50:00 76 mm[Hg] [facility] height 2023-02-20 14:40:00 71 [in_i] Commo n [facility] weight 2023-02-20 14:40:00 214.4 [lb_av] Co [facility] temperature 2023-02-20 14:40:00 98.2 [degF] Com mon [facility] bmi 2023-02-20 14:40:00 29.9 kg/m2 [facility] oximetry 2023-02-20 14:40:00 97 % [facility] respiratory rate 2023-02-20 14:40:00 16 /min Common [facility] blood pressure systolic 2023-02-20 14:40:00 132 mm[Hg] Common [facility] blood pressure diastolic 2023-02-20 14:40:00 76 mm[Hg] [facility] height 2022-07-08 07:50:00 71 [in_i] Commo n [facility] weight 2022-07-08 07:50:00 207 [lb_av] Comm on [facility] bmi 2022-07-08 07:50:00 28.87 kg/m2 Comm on [facility] blood pressure systolic 2022-07-08 07:50:00 132 mm[Hg] Common [facility] blood pressure diastolic 2022-07-08 07:50:00 67 mm[Hg] [facility] height 2022-03-03 13:50:00 71 [in_i] Commo n [facility] weight 2022-03-03 13:50:00 209.7 [lb_av] Co mmon [facility] temperature 2022-03-03 13:50:00 97.9 [degF] Com mon [facility] bmi 2022-03-03 13:50:00 29.24 kg/m2 Comm on [facility] oximetry 2022-03-03 13:50:00 97 % [facility] respiratory rate 2022-03-03 13:50:00 18 /min Common [facility] blood pressure systolic 2022-03-03 13:50:00 130 mm[Hg] [facility] blood pressure diastolic 2022-03-03 13:50:00 69 mm[Hg] [facility] height 2021-11-01 11:20:00 71 [in_i] [facility]mo n [facility] weight 2021-11-01 11:20:00 198 [lb_av] Comm on [facility] bmi 2021-11-01 11:20:00 27.61 kg/m2 Comm on [facility] height 2021-08-13 07:50:00 71 [in_i] [facility]mo [facility] weight 2021-08-13 07:50:00 198 [lb_av] Comm on [facility] temperature 2021-08-13 07:50:00 98 [degF] [facility] on [facility] bmi 2021-08-13 07:50:00 27.61 kg/m2 [facility] on [facility] blood pressure systolic 2021-08-13 07:50:00 130 mm[Hg] Common [facility] blood pressure diastolic 2021-08-13 07:50:00 76 mm[Hg] Common [facility] height 2021-05-18 10:20:00 71 [in_i] Commo n [facility] weight 2021-05-18 10:20:00 199.4 [lb_av] Co mmon [facility] temperature 2021-05-18 10:20:00 97.2 [degF] Com mon [facility] bmi 2021-05-18 10:20:00 27.81 kg/m2 [facility] on [facility] oximetry 2021-05-18 10:20:00 97 % [facility] respiratory rate 2021-05-18 10:20:00 17 /min Common [facility] blood pressure systolic 2021-05-18 10:20:00 132 mm[Hg] [facility] blood pressure diastolic 2021-05-18 10:20:00 76 mm[Hg] [facility] height 2021-02-23 13:40:00 71 [in_i] Commo n [facility] weight 2021-02-23 13:40:00 195 [lb_av] Comm on [facility] bmi 2021-02-23 13:40:00 27.19 kg/m2 Comm on [facility] height 2021-02-16 11:20:00 71 [in_i] Commo n [facility] weight 2021-02-16 11:20:00 195 [lb_av] [facility] on [facility] temperature 2021-02-16 11:20:00 98 [degF] [facility] on [facility] bmi 2021-02-16 11:20:00 27.19 kg/m2 [facility] on [facility] blood pressure systolic 2021-02-16 11:20:00 130 mm[Hg] Common [facility] blood pressure diastolic 2021-02-16 11:20:00 70 mm[Hg] Common [facility] height 2021-01-19 08:00:00 71 [in_i] Commo n [facility] weight 2021-01-19 08:00:00 199.4 [lb_av] Co mmon [facility] temperature 2021-01-19 08:00:00 97.7 [degF] Com mon [facility] bmi 2021-01-19 08:00:00 27.81 kg/m2 [facility] oximetry 2021-01-19 08:00:00 95 % [facility] respiratory rate 2021-01-19 08:00:00 16 /min [facility] blood pressure systolic 2021-01-19 08:00:00 132 mm[Hg] Common [facility] blood pressure diastolic 2021-01-19 08:00:00 72 mm[Hg] [facility] Encounters Start Date/Time End Date/Time Encounter Type Admission Type Attending [facility] Care Department Encounter ID Source 2024-07-16 10:36:00 [facility] [id number] [facility] 2024-03-26 10:00:00 Outpatient Alfonso, Saurabh [facility] [id number] [facility] 2023-08-09 10:57:00 Outpatient Alfonso, Saurabh [facility] [id number] [facility] 2023-02-16 15:20:00 Outpatient Alfonso, Saurabh [facility] [id number] [facility] 2022-07-06 08:03:02 Outpatient Alfonso, Saurabh [facility] [id number] [facility] 2021-11-17 10:48:00 Outpatient Alfonso, Saurabh [facility] [id number] [facility] 2021-11-01 13:43:00 Outpatient Alfonso, Saurabh [facility] [id number] [facility] 2021-10-05 15:03:00 Outpatient Alfonso, Saurabh [facility] [id number] [facility] 2021-05-18 16:09:01 Outpatient Alfonso, Saurabh [facility] [id number] [facility] 2021-05-12 12:48:29 Outpatient Alfonso, Saurabh [facility] [id number] [facility] 2021-05-12 11:58:19 Outpatient Alfonso, Saurabh [facility] [id number] [facility] 2021-05-12 11:53:03 Outpatient Alfonso, Saurabh [facility] [id number] [facility] 2021-05-12 11:33:09 Outpatient Alfonso, Saurabh [facility] ST[facility] [id number] [facility] 2021-05-12 11:32:59 Outpatient Alfonso, Saurabh [facility] ST[facility] [id number] [facility] 2021-05-12 11:18:34 Outpatient Alfonso, Saurabh [facility] ST[facility] [id number] [facility] 2021-05-12 11:18:30 Outpatient Alfonso, Saurabh [facility] ST[facility] [id number] [facility] 2024-09-13 00:00:00 2024-09-13 00:00:00 (TEL) STLMLC STL[facility]C [id number] [facility] 2024-08-15 00:00:00 2024-08-15 00:00:00 (TEL) STLMLC STL[facility]C [id number] [facility] 2024-07-30 00:00:00 2024-07-30 00:00:00 OFFICE VISIT ESTAB PT LEVEL 4 [facility] STL[facility]C [id number] [facility] 2024-07-30 00:00:00 2024-07-30 00:00:00 (TEL) STLMLC STL[facility]C [id number] [facility] 2024-07-16 00:00:00 2024-07-16 00:00:00 OFFICE VISIT ESTAB PT LEVEL 4 [facility] STL[facility]C [id number] [facility] 2024-07-10 00:00:00 2024-07-10 00:00:00 (TEL) STLMLC STL[facility]C [id number] [facility] 2024-07-09 00:00:00 2024-07-09 00:00:00 (TEL) STLMLC STL[facility]C [id number] [facility] 2024-02-13 00:00:00 2024-02-13 00:00:00 (TEL) STLMLC STL[facility]C [id number] [facility] 2024-02-05 00:00:00 2024-02-05 00:00:00 (TEL) STLMLC STLMLC [id number] [facility] 2023-10-03 00:00:00 2023-10-03 00:00:00 (WEB) STLMLC STLMLC [id number] [facility] 2023-08-24 00:00:00 2023-08-24 00:00:00 (WEB) STLMLC STLMLC [id number] [facility] 2023-08-11 00:00:00 2023-08-11 00:00:00 OFFICE VISIT ESTAB PT LEVEL 4 [facility] STL[facility]C [id number] [facility] 2023-08-11 00:00:00 2023-08-11 00:00:00 (TEL) STLMLC STLMLC [id number] [facility] 2023-06-29 00:00:00 2023-06-29 00:00:00 (WEB) STLMLC STL[facility]C [id number] [facility] 2023-03-17 00:00:00 2023-03-17 00:00:00 (TEL) STLMLC STL[facility]C [id number] [facility] 2023-02-20 00:00:00 2023-02-20 00:00:00 PREV VISIT EST AGE 40-64 STLMLC STLMLC [id number] [facility] 2022-11-28 00:00:00 2022-11-28 00:00:00 (TEL) STLMLC STLMLC [id number] [facility] 2022-10-24 00:00:00 2022-10-24 00:00:00 (TEL) STLMLC STLMLC [id number] [facility] 2022-07-08 00:00:00 2022-07-08 00:00:00 OFFICE VISIT ESTAB PT LEVEL 3 [facility]C STL[facility]C [id number] [facility] 2022-06-21 00:00:00 2022-06-21 00:00:00 (TEL) STLMLC STLMLC [id number] [facility] 2022-03-03 00:00:00 2022-03-03 00:00:00 PREV VISIT EST AGE 40-64 STLMLC STLMLC [id number] [facility] 2022-02-16 00:00:00 2022-02-16 00:00:00 (TEL) STLMLC STLMLC [id number] [facility] 2021-11-01 00:00:00 2021-11-01 00:00:00 OL DIG E/M SVC 11-20 MIN STLMLC STL[facility]C [id number] [facility] 2021-10-29 00:00:00 2021-10-29 00:00:00 (TEL) STLMLC STLMLC [id number] [facility] 2021-08-30 00:00:00 2021-08-30 00:00:00 (TEL) STLMLC STLMLC [id number] [facility] 2021-08-13 00:00:00 2021-08-13 00:00:00 OFFICE VISIT ESTAB PT LEVEL 4 [facility]LMLC STLMLC [id number] [facility] 2021-06-14 00:00:00 2021-06-14 00:00:00 (TEL) STLMLC STLMLC [id number] [facility] 2021-05-18 00:00:00 2021-05-18 00:00:00 OFFICE VISIT EST PT LEVEL 3 STLMLC STLMLC [id number] [facility] 2021-02-24 00:00:00 2021-02-24 00:00:00 (TEL) STLMLC STLMLC [id number] [facility] 2021-02-23 00:00:00 2021-02-23 00:00:00 OFFICE VISIT EST PT LEVEL 3 [facility] STL[facility]C [id number] [facility] 2021-02-23 00:00:00 2021-02-23 00:00:00 (TEL) STLMLC STLMLC [id number] [facility] 2021-02-16 00:00:00 2021-02-16 00:00:00 OFFICE VISIT EST PT LEVEL 3 [facility] STL[facility]C [id number] [facility] 2021-01-19 00:00:00 2021-01-19 00:00:00 PREV VISIT EST AGE 40-64 STLMLC STLMLC [id number] [facility] 2020-07-22 00:00:00 2020-07-22 00:00:00 Outpatient STL[facility]C STL[facility]C [id number] [facility] 2020-04-30 00:00:00 2020-04-30 00:00:00 Outpatient [facility]C ST[facility]C [id number] [facility] 2020-04-29 00:00:00 2020-04-29 00:00:00 Outpatient [facility]C ST[facility]C [id number] [facility] 2020-01-22 00:00:00 2020-01-22 00:00:00 Outpatient [facility]C ST[facility]C [id number] [facility] 2019-11-11 09:30:00 2019-11-11 09:30:[address] [facility] [id number] [facility] 2019-02-04 11:15:00 2019-02-04 11:15:[address] [facility] [id number] [facility] 2019-01-29 11:09:00 2019-01-29 11:09:[address] [facility] [id number] [facility] 2018-11-02 10:15:00 2018-11-02 10:15:[address] [facility] [id number] [facility] 2018-04-30 15:00:00 2018-04-30 15:00:[address] [facility] [id number] [facility] 2018-04-27 10:30:00 2018-04-27 10:30:00 [facility] [id number] [facility] 2018-04-20 09:30:00 2018-04-20 09:30:00 [facility] [id number] [facility] 2017-12-20 08:00:00 2017-12-20 08:00:00 [facility] [id number] [facility] 2017-12-06 15:45:00 2017-12-06 15:45:00 Outpatient [facility] [id number] [facility] Results Test Description Test Time Test Comments Results Result Co mments Source COMPREHENSIVE METABOLIC [id number] 00:00:00* Test Item Value Reference Range Interpretation Comme nts NUCLEATED RBCS (test code = 83866-5) 0.0 /100 WBC'S See_Comment [Automated message] The system which generated this result transmitted reference range: 0.0 /100 WBC'S. The reference range was not used to interpret this result as normal/abnormal. ABSOLUTE EOSINOPHILS (test code = 77567-5) 0.33 K/UL See_Comment [Automated message] The system which generated this result transmitted reference range: 0.00-0.50 K/UL. The reference range was not used to interpret this result as normal/abnormal. ABSOLUTE LYMPHOCYTES (test code = 25849-6) 3.47 K/UL See_Comment [Automated message] The system which generated this result transmitted reference range: 1.00-4.00 K/UL. The reference range was not used to interpret this result as normal/abnormal. ABSOLUTE MONOCYTES (test code = 23197-2) 1.05 K/UL See_Comment H [Automated message] The system which generated this result transmitted reference range: 0.20-1.00 K/UL. The reference range was not used to interpret this result as normal/abnormal. ABSOLUTE NEUTROPHILS (test code = 83694-0) 3.34 K/UL See_Comment [Automated message] The system which generated this result transmitted reference range: 1.50-7.50 K/UL. The reference range was not used to interpret this result as normal/abnormal. BASOPHILS (test code = 89163-6) 0.8 % EOSINOPHILS (test code = 27462-3) 4.0 % HEMATOCRIT (test code = 86953-1) 51.3 % See_Comment H [Automated messa ge] The system which generated this result transmitted reference range: 40.0-51.0 %. The reference range was not used to interpret this result as normal/abnormal. HEMOGLOBIN (test code = 718-7) 17.7 G/DL See_Comment H [Automated messa ge] The system which generated this result transmitted reference range: 13.5-17.0 G/DL. The reference range was not used to interpret this result as normal/abnormal. LYMPHOCYTES (test code = 38079-4) 41.8 % MCH (test code = 04148-4) 30.8 PG See_Comment [Automated messa ge] The system which generated this result transmitted reference range: 25.0-33.0 PG. The reference range was not used to interpret this result as normal/abnormal. MCHC (test code = 75208-6) 34.5 G/DL See_Comment [Automated messa ge] The system which generated this result transmitted reference range: 31.0-36.0 G/DL. The reference range was not used to interpret this result as normal/abnormal. MCV (test code = 24073-2) 89.2 fL See_Comment [Automated messa ge] The system which generated this result transmitted reference range: 80.0-99.0 fL. The reference range was not used to interpret this result as normal/abnormal. MONOCYTES (test code = 34066-4) 12.7 % NEUTROPHILS (test code = 48239-5) 40.2 % PLATELET COUNT (test code = 88422-3) 198 K/UL See_Comment [Automated messa ge] The system which generated this result transmitted reference range: 130-400 K/UL. The reference range was not used to interpret this result as normal/abnormal. RBC (test code = 06835-3) 5.75 M/UL See_Comment [Automated messa ge] The system which generated this result transmitted reference range: 4.50-6.10 M/UL. The reference range was not used to interpret this result as normal/abnormal. RDW (test code = 25304-3) 12.2 % See_Comment [Automated [employer] ge] The system which generated this result transmitted reference range: 11.5-15.0 %. The reference range was not used to interpret this result as normal/abnormal. WBC (test code = 15787-7) 8.3 K/UL See_Comment [Automated [employer] ge] The system which generated this result transmitted reference range: 3.5-11.0 K/UL. The reference range was not used to interpret this result as normal/abnormal. CALC LDL CHOL (test code = 79981-3) 142 MG/DL See_Comment H [Automated [employer] ge] The system which generated this result transmitted reference range: <100 MG/DL. The reference range was not used to interpret this result as normal/abnormal. CHOLESTEROL (test code = 2093-3) 217 MG/DL See_Comment H [Automated [employer] ge] The system which generated this result transmitted reference range: <200 MG/DL. The reference range was not used to interpret this result as normal/abnormal. HDL CHOLESTEROL (test code = 2085-9) 53 MG/DL See_Comment [Automated [employer] ge] The system which generated this result transmitted reference range: >39 MG/DL. The reference range was not used to interpret this result as normal/abnormal. RISK RATIO LDL/HDL (test code = 06060-7) 2.68 RATIO See_Comment [Automated message] The system which generated this result transmitted reference range: <3.55 RATIO. The reference range was not used to interpret this result as normal/abnormal. TRIGLYCERIDES (test code = 2571-8) 103 MG/DL See_Comment [Automated [employer] ge] The system which generated this result transmitted reference range: <150 MG/DL. The reference range was not used to interpret this result as normal/abnormal. ALBUMIN (test code = 1751-7) 4.7 G/DL See_Comment [Automated [employer] ge] The system which generated this result transmitted reference range: 3.5-5.2 G/DL. The reference range was not used to interpret this result as normal/abnormal. ALKALINE PHOSPHATASE (test code = 6768-6) 44 U/L See_Comment [Automated message] The system which generated this result transmitted reference range: 40-121 U/L. The reference range was not used to interpret this result as normal/abnormal. BILIRUBIN, TOTAL (test code = 1975-2) 0.6 MG/DL See_Comment [Automated messa ge] The system which generated this result transmitted reference range: <=1.2 MG/DL. The reference range was not used to interpret this result as normal/abnormal. BUN (test code = 3094-0) 16 MG/DL See_Comment [Automated messa ge] The system which generated this result transmitted reference range: 6-20 MG/DL. The reference range was not used to interpret this result as normal/abnormal. CALCIUM (test code = 58641-3) 9.6 MG/DL See_Comment [Automated messa ge] The system which generated this result transmitted reference range: 8.5-10.5 MG/DL. The reference range was not used to interpret this result as normal/abnormal. CALC A/G RATIO (test code = 1759-0) 2.0 RATIO See_Comment [Automated messa ge] The system which generated this result transmitted reference range: 1.0-2.6 RATIO. The reference range was not used to interpret this result as normal/abnormal. CALC BUN/CREAT (test code = 3097-3) 14 RATIO See_Comment [Automated messa ge] The system which generated this result transmitted reference range: 6-28 RATIO. The reference range was not used to interpret this result as normal/abnormal. CALC GLOBULIN (test code = 41929-6) 2.4 G/DL See_Comment [Automated messa ge] The system which generated this result transmitted reference range: 1.9-3.7 G/DL. The reference range was not used to interpret this result as normal/abnormal. CARBON DIOXIDE (test code = 1963-8) 26 MEQ/L See_Comment [Automated messa ge] The system which generated this result transmitted reference range: 19-31 MEQ/L. The reference range was not used to interpret this result as normal/abnormal. CHLORIDE (test code = 2075-0) 102 MEQ/L See_Comment [Automated messa ge] The system which generated this result transmitted reference range: 95-107 MEQ/L. The reference range was not used to interpret this result as normal/abnormal. CREATININE (test code = 2160-0) 1.11 MG/DL See_Comment [Automated messa ge] The system which generated this result transmitted reference range: 0.80-1.40 MG/DL. The reference range was not used to interpret this result as normal/abnormal. eGFR (2020 CKD-EPI) (test code = 17861-3) 80 ML/MIN/1.73 See_Comment [Automated message] The system which generated this result transmitted reference range: >60 ML/MIN/1.73. The reference range was not used to interpret this result as normal/abnormal. GLUCOSE (test code = 1558-6) 103 MG/DL See_Comment H [Automated messa ge] The system which generated this result transmitted reference range: 70-99 MG/DL. The reference range was not used to interpret this result as normal/abnormal. POTASSIUM (test code = 2823-3) 4.7 MEQ/L See_Comment [Automated messa ge] The system which generated this result transmitted reference range: 3.5-5.4 MEQ/L. The reference range was not used to interpret this result as normal/abnormal. PROTEIN, TOTAL (test code = 2885-2) 7.1 G/DL See_Comment [Automated messa ge] The system which generated this result transmitted reference range: 6.1-8.3 G/DL. The reference range was not used to interpret this result as normal/abnormal. AST (test code = 1920-8) 43 U/L See_Comment [Automated messa ge] The system which generated this result transmitted reference range: 9-50 U/L. The reference range was not used to interpret this result as normal/abnormal. ALT (test code = 1742-6) 86 U/L See_Comment H [Automated messa ge] The system which generated this result transmitted reference range: 5-50 U/L. The reference range was not used to interpret this result as normal/abnormal. SODIUM (test code = 2951-2) 141 MEQ/L See_Comment [Automated messa ge] The system which generated this result transmitted reference range: 133-146 MEQ/L. The reference range was not used to interpret this result as normal/abnormal. CBC W/AUTO [id number] 00:00:00* Test Item Value Reference Range Interpretation Comme nts NUCLEATED RBCS (test code = 19770-6) 0.0 /100 WBC'S See_Comment [Automated messa ge] The system which generated this result transmitted reference range: 0.0 /100 WBC'S. The reference range was not used to interpret this result as normal/abnormal. ABSOLUTE EOSINOPHILS (test code = 30692-5) 0.29 K/UL See_Comment [Automated messa ge] The system which generated this result transmitted reference range: 0.00-0.50 K/UL. The reference range was not used to interpret this result as normal/abnormal. ABSOLUTE LYMPHOCYTES (test code = 25316-0) 2.51 K/UL See_Comment [Automated messa ge] The system which generated this result transmitted reference range: 1.00-4.00 K/UL. The reference range was not used to interpret this result as normal/abnormal. ABSOLUTE MONOCYTES (test code = 44271-2) 0.85 K/UL See_Comment [Automated messa ge] The system which generated this result transmitted reference range: 0.20-1.00 K/UL. The reference range was not used to interpret this result as normal/abnormal. ABSOLUTE NEUTROPHILS (test code = 76519-7) 2.98 K/UL See_Comment [Automated messa ge] The system which generated this result transmitted reference range: 1.50-7.50 K/UL. The reference range was not used to interpret this result as normal/abnormal. BASOPHILS (test code = 65766-1) 1.2 % EOSINOPHILS (test code = 27444-9) 4.3 % HEMATOCRIT (test code = 11104-7) 48.9 % See_Comment [Automated messa ge] The system which generated this result transmitted reference range: 40.0-51.0 %. The reference range was not used to interpret this result as normal/abnormal. HEMOGLOBIN (test code = 718-7) 16.8 G/DL See_Comment [Automated messa ge] The system which generated this result transmitted reference range: 13.5-17.0 G/DL. The reference range was not used to interpret this result as normal/abnormal. LYMPHOCYTES (test code = 25669-3) 37.4 % MCH (test code = 55126-8) 29.7 PG See_Comment [Automated messa ge] The system which generated this result transmitted reference range: 25.0-33.0 PG. The reference range was not used to interpret this result as normal/abnormal. MCHC (test code = 78352-4) 34.4 G/DL See_Comment [Automated messa ge] The system which generated this result transmitted reference range: 31.0-36.0 G/DL. The reference range was not used to interpret this result as normal/abnormal. MCV (test code = 79761-1) 86.5 fL See_Comment [Automated messa ge] The system which generated this result transmitted reference range: 80.0-99.0 fL. The reference range was not used to interpret this result as normal/abnormal. MONOCYTES (test code = 33585-4) 12.6 % NEUTROPHILS (test code = 42410-9) 44.4 % PLATELET COUNT (test code = 13148-5) 233 K/UL See_Comment [Automated messa ge] The system which generated this result transmitted reference range: 130-400 K/UL. The reference range was not used to interpret this result as normal/abnormal. RBC (test code = 95973-9) 5.65 M/UL See_Comment [Automated messa ge] The system which generated this result transmitted reference range: 4.50-6.10 M/UL. The reference range was not used to interpret this result as normal/abnormal. RDW (test code = 18053-6) 12.2 % See_Comment [Automated messa ge] The system which generated this result transmitted reference range: 11.5-15.0 %. The reference range was not used to interpret this result as normal/abnormal. WBC (test code = 49603-0) 6.7 K/UL See_Comment [Automated messa ge] The system which generated this result transmitted reference range: 3.5-11.0 K/UL. The reference range was not used to interpret this result as normal/abnormal.
[2024-11-27] MEDS ORDERED: FAMOTIDINE 20 MG/2 ML VIAL IV ONE (04:35)
[2024-11-27] MEDS ORDERED: KETOROLAC 30 MG/ML INJ ONE (04:35)
[2024-11-27] MEDS ORDERED: MORPHINE 4 MG/ML SYR ONE (04:35)
[2024-11-27] MEDS ORDERED: ONDANSETRON 4 MG/2 ML VIAL ONE (04:35)
[2024-11-27] MEDS ORDERED: NA CHLORIDE 0.9% 1,000 ML ONE ×2 (04:36→04:55)
[2024-11-27 05:07] LABS: Absolute Lymphocytes (CBC) 1.0 K/uL (0.7-4.9); Hematocrit 49.3 % (39.6-49.0); Hemoglobin 17.7 g/dL (13.6-17.9); MCH 30.8 pg (27.0-35.0); MCHC 36.0 g/dL (32.0-36.0); MCV 85.6 fL (80-100); MPV 9.1 fL (7.6-11.3); Nucleated RBC Absolute Count 0.0 (0-0); Nucleated Red Blood Cells % 0.2 % (0-0); RBC Red Blood Cell Count 5.76 M/uL (4.33-5.43); White Blood Count 9.60 thou/uL (4.3-10.9)
[2024-11-27 05:24] LABS: ALT/SGPT 79.0 U/L (16-61); AST/SGOT 27.0 U/L (15-37); Albumin 3.9 g/dL (3.4-5.0); Albumin/Globulin Ratio 1.1 (1.1-1.8); Alkaline Phosphatase 33.0 U/L (45-117); Anion Gap 10.0 mEq/L (5.0-15.0); BUN Blood Urea Nitrogen 19.0 mg/dL (7-18); Globulin 3.6 g/dL (2.3-3.5); Glucose Level 138.0 mg/dL (74-106); Lipase 62.0 U/L (13-75); Potassium 4.0 mEq/L (3.5-5.1)
--- NOTE | 2024-11-27 06:44 | RAD REPORT ---
EXAM DESCRIPTION: Abdomen Pelvis W Contrast RadLex: CT ABDOMEN PELVIS WITH IV CONTRAST CLINICAL HISTORY: 54 years Male; ABD PAIN; IV ONLY Bed Name: 7 TECHNIQUE: CT of the abdomen and pelvis [with] intravenous contrast. All CT scans at this facility use dose modulation, iterative reconstruction, and/or weight based dosi ng when appropriate to reduce radiation dose to as low as reasonably achievable. COMPARISON: None. FINDINGS: Lower thorax: Bibasilar atelectasis. Abdomen: Stomach: Within normal limits Liver: No focal lesions. Enlarged. Hepatic steatosis. No intrahepatic ductal distention. Gallbladder: Nondistended Pancreas: Within normal limits Spleen: Within normal limits Right kidney: No hydronephrosis. Subcentimeter hypodensities, too small to characterize. Left kidney: No hydronephrosis. Subcentimeter hypodensities, too small to. Adrenal glands: Indeterminate left adrenal lesion measuring 1.7 cm. Vascular structures: Within normal limits Nodes: No lymphadenopathy by size criteria Pelvis: Small bowel: No significant distention. Fluid-filled contents. Appendix: Within normal limits Colon: No distention or acute pericolonic edema. Peritoneum: No free intraperitoneal fluid or air. Bones: No acute bone findings. Bladder: Unremarkable. Reproductive organs: No acute findings. IMPRESSION: 1. Fluid-filled small bowel contents, can be seen in setting of diarrheal illness. 2. Hepatomegaly with hepatic steatosis. 3. Indeterminate left adrenal lesion measuring 1.7 cm. Recommend nonemergent adrenal protocol CT or MRI. Electronically signed by: Abena Jolly MD 11/27/2024 06:40 AM [employer] Due to temporary technical issues with the PACS/zlien reporting system, reports are being deisy d by the in-house radiologist without review as a courtesy to ensure prompt reporting the interpreting radiologist is fully responsible for the content of the report. Transcribed Date/Time: 11/27/2024 6:43 AM
--- NOTE | 2024-11-27 06:58 | ER ---
Nurse's Notes [facility] Name: Arturo Patel Age: 54 yrs Sex: Male : 1970 Arrival Date: 11/27/2024 Time: 04:21 Bed 7 Private MD: Saurabh Alfonso Diagnosis: Acute viral gastroenteritis, acute nausea vomiting, acute diarrheal illness Presentation: 11/27 04:30 Chief complaint: Patient states: right sided lower abdominal, flank and back pain lg3 beginning yesterday with nausea and vomiting. Coronavirus screen: Client denies travel out of the [place] in the last 14 days. At this time, the client does not indicate any symptoms associated with coronavirus-19. Ebola Screen: No symptoms or risks identified at this time. Initial Sepsis Screen: Does the patient meet any 2 criteria? No. Patient's initial sepsis screen is negative. Does the patient have a suspected source of infection? No. Patient's initial sepsis screen is negative. Risk Assessment: Do you want to hurt yourself or someone else? Patient reports no desire to harm self or others. Onset of symptoms was November 26, 2024. 04:30 Method Of Arrival: Ambulatory lg3 04:30 Acuity: JIMBO 3 lg3 Triage Assessment: 04:47 General: Appears in no apparent distress. uncomfortable, ill, Behavior is calm, lg3 cooperative. Pain: Complains of pain in right lower quadrant Pain radiates to right flank, right lower back Pain currently is 10 out of 10 on a pain scale. Also complains of nausea. EENT: No deficits noted. No signs and/or symptoms were reported regarding the EENT system. Neuro: No deficits noted. Joseph Agitation-Sedation Scale (RASS): 0 - Alert and Calm Level of Consciousness is awake, alert, obeys commands, Oriented to person, place, time, situation. Cardiovascular: No deficits noted. Denies chest pain, shortness of breath, Capillary refill < 3 seconds Clubbing of nail beds is absent JVD is absent Patient's skin is warm and dry. Respiratory: No deficits noted. Airway is patent Respiratory effort is even, unlabored, Respiratory pattern is regular, symmetrical. GI: Abdomen is round non-distended, Pt is actively vomiting clear fluid, undigested food, Bowel sounds present X 4 quads. Reports lower abdominal pain, nausea, vomiting. : No signs and/or symptoms were reported regarding the genitourinary system. Derm: No deficits noted. No signs and/or symptoms reported regarding the dermatologic system. Skin is intact, is healthy with good turgor, Skin is dry, Skin is normal, Skin temperature is warm. Musculoskeletal: No deficits noted. Circulation, motion, and sensation intact. Range of motion: intact in all extremities. Historical: - Allergies: 04:47 Codeine; lg3 - Home Meds: 04:47 losartan 50 mg oral tablet daily [Active]; Nexium Oral [Active]; lg3 - PMHx: 04:47 GERD; Hypertension; lg3 - PSHx: 04:47 Left ACL Repair; Right shoulder sx; lg3 - Immunization history:: Adult Immunizations up to date. - Infectious Disease History:: Denies. - Social history:: Smoking status: Patient reports use of chewing tobacco. Patient uses alcohol, only on a social basis. Patient/guardian denies using street drugs. - Family history:: not pertinent. Screenin:30 [facility] ED Fall Risk Assessment (Adult) History of falling in the last 3 months, lg3 including since admission No falls in past 3 months (0 pts) Confusion or Disorientation No (0 pts) Intoxicated or Sedated No (0 pts) Impaired Gait No (0 pts) Mobility Assist Device Used No (0 pt) Altered Elimination No (0 pt) Score/Fall Risk Level 0 - 2 = Low Risk Oriented to surroundings, Maintained a safe environment, Educated pt \T\ family on fall prevention, incl call for assistance when getting out of bed, Assessed \T\ reinforced patient's understanding of fall precautions. Abuse screen: Denies threats or abuse. Denies injuries from another. Nutritional screening: No deficits noted. Tuberculosis screening: No symptoms or risk factors identified. Assessment: 04:30 General: see triage assessment. GI: Pt is actively vomiting clear fluid, undigested lg3 food, Abd is soft X 4 quads Abdomen is tender to palpation in right lower quadrant Guarding noted. 07:36 General: Appears in no apparent distress. Behavior is cooperative. Pain: Complains of iw pain in abdomen. Neuro: Level of Consciousness is obeys commands, Oriented to person, place, time. Cardiovascular: Patient's skin is warm and dry. Respiratory: Respiratory effort is even, unlabored, Respiratory pattern is regular, symmetrical. GI: Reports diarrhea, nausea. Derm: Skin is intact, is healthy with good turgor. Musculoskeletal: Range of motion: intact in all extremities. 07:38 Reassessment: d/c pending completion of IVF. iw Vital Signs: 04:30 Weight 99.79 kg (R); Height 5 ft. 11 in. ; Pain 10/10; lg3 04:42 BP 128 / 82; Pulse 116; Resp 21; Temp 98.2; Pulse Ox 96% on R/A; kd3 04:57 BP 119 / 86; Pulse 95; Resp 18 S; Pulse Ox 96% on R/A; lg3 06:31 BP 107 / 77; Pulse 85; Resp 16; Pulse Ox 95% on R/A; kd3 08:32 BP 120 / 77; Pulse 98; Resp 18; Pulse Ox 97% on R/A; iw 04:30 Body Mass Index 30.68 (99.79 kg, 180.34 cm) lg3 04:30 Pain Scale: Adult lg3 [place] Coma Score: 06:11 Eye Response: spontaneous(4). Motor Response: obeys commands(6). Verbal Response: sp4 oriented(5). Total: 15. ED Course: 04:22 Patient arrived in ED. jj6 04:23 Saurabh Alfonso DO is Private Physician. jj6 04:30 Initial lab(s) drawn, by me, sent to lab. lg3 04:30 Patient has correct armband on for positive identification. Placed in gown. Bed in low lg3 position. Call light in reach. Side rails up X 1. Client placed on continuous cardiac and pulse oximetry monitoring. NIBP monitoring applied. Door closed. Noise minimized. Warm blanket given. Pillow given. Family accompanied patient. 04:32 Ubaldo De León MD is Attending Physician. sp4 04:34 Ofelia Powers, LAURA is Primary Nurse. kd3 04:34 Inserted saline lock: 20 gauge in right antecubital area, using aseptic technique. kd3 Blood collected. Flushed with 10 mL NS. 04:47 Triage completed. lg3 04:47 Arm band placed on right wrist. lg3 04:48 Radiology exam delayed due to lab results not completed at this time. (BUN/Creatinine). eh 04:53 CK Sent. lg3 05:43 CT Abd/Pelvis - IV Contrast Only In Process Unspecified. EDMS 06:53 Saurabh Alfonso DO is Referral Physician. sp4 08:32 No provider procedures requiring assistance completed. IV discontinued, intact, iw bleeding controlled, No redness/swelling at site. Pressure dressing applied. Administered Medications: 04:52 Drug: morphine IVP or IV 4 mg IVP once over 4 mins Route: IVP; Infused Over: 4 mins; lg3 Site: right antecubital; 06:00 Follow up: Response: No adverse reaction; Marked relief of symptoms; Pain is decreased lg3 04:52 Drug: Ketorolac IVP 30 mg IVP once Route: IVP; Site: right antecubital; lg3 05:59 Follow up: Response: No adverse reaction lg3 04:52 Drug: Ondansetron IVP 8 mg IVP once; over 2 minutes Route: IVP; Site: right antecubital;lg3 05:59 Follow up: Response: No adverse reaction; Marked relief of symptoms; Vomiting decreased lg3 04:52 Drug: NS 0.9% IV 1000 ml IV at 1000 ml once; to be given as a bolus over 60 minutes lg3 Route: IV; Rate: 1000 ml; Site: right antecubital; 05:59 Follow up: Response: No adverse reaction; IV Status: Completed infusion; IV Intake: lg3 1000ml 04:52 Drug: Droperidol IVP 2.5 mg IVP once Route: IVP; Site: right antecubital; lg3 05:59 Follow up: Response: No adverse reaction; Marked relief of symptoms; RASS: Drowsy (-1) lg3 04:52 Drug: Famotidine IVP 20 mg IVP once; dilute with 10 mL 0.9% NaCl; give over 2 minutes lg3 Route: IVP; Site: right antecubital; 05:59 Follow up: Response: No adverse reaction lg3 04:57 Drug: NS 0.9% IV 1000 ml IV at 1000 ml once; to be given as a bolus over 60 minutes lg3 Route: IV; Rate: 1000 ml; Site: right antecubital; 05:58 Follow up: Response: No adverse reaction; IV Status: Completed infusion; IV Intake: lg3 1000ml 07:32 Drug: Diphenoxylate-Atropine PO 2 tabs PO once Route: PO; iw 08:33 Follow up: Response: No adverse reaction iw 07:32 Drug: Promethazine PO 25 mg PO once Route: PO; iw 08:33 Follow up: Response: No adverse reaction iw 07:32 Drug: Dicyclomine PO 20 mg PO once Route: PO; iw 08:33 Follow up: Response: No adverse reaction iw Medication: 04:30 VIS not applicable for this client. lg3 Intake: 05:58 IV: 1000ml; Total: 1000ml. lg3 05:59 IV: 1000ml; Total: 2000ml. lg3 Outcome: 06:58 Discharge ordered by sp4 08:32 Discharged to home via wheelchair, with family, iw 08:32 Condition: good 08:32 Discharge instructions given to patient, family, Instructed on discharge instructions, follow up and referral plans. medication usage, Demonstrated understanding of instructions, follow-up care, medications, Prescriptions given X 3, 08:33 Patient left the ED. iw Signatures: Dispatcher [employer] EDDeepak Douglas Irene, RN RN iw AbleShelby, RN RN lg3 Sarah Becker jj6 Ofelia Powers RN RN [email or web address] Ubaldo De León MD MD sp4
--- NOTE | 2024-11-27 06:59 | EDPHYS ---
Physician Documentation [facility] Name: Arturo Patel Age: 54 yrs Sex: Male : 1970 Arrival Date: 11/27/2024 Time: 04:21 Bed 7 Private MD: [facility] ED Physician Ubaldo De León HPI: 11/27 04:46 This 54 yrs old White Male presents to ER via Unassigned with complaints of Abdominal sp4 Cramping, Abdominal Pain, Nausea/Vomiting. 06:15 Patient presents with acute onset of profuse vomiting and diarrhea also right sided sp4 abdominal pain. Historical: - Allergies: 04:47 Codeine; lg3 - Home Meds: 04:47 losartan 50 mg oral tablet daily [Active]; Nexium Oral [Active]; lg3 - PMHx: 04:47 GERD; Hypertension; lg3 - PSHx: 04:47 Left ACL Repair; Right shoulder sx; lg3 - Immunization history:: Adult Immunizations up to date. - Infectious Disease History:: Denies. - Social history:: Smoking status: Patient reports use of chewing tobacco. Patient uses alcohol, only on a social basis. Patient/guardian denies using street drugs. - Family history:: not pertinent. ROS: 06:11 Constitutional: Negative for fever, chills, and weight loss, sp4 06:11 All other systems are negative, Exam: 06:11 Constitutional: This is a well developed, well nourished patient who is awake, alert, sp4 and in no acute distress. Head/Face: Normocephalic, atraumatic. Eyes: Pupils equal round and reactive to light, extra-ocular motions intact. Lids and lashes normal. Conjunctiva and sclera are not injected. Cornea within normal limits. Periorbital areas with no swelling, redness, or edema. ENT: Nares patent. No nasal discharge, no septal abnormalities noted. Tympanic membranes are normal and external auditory canals are clear. Oropharynx with no redness, swelling, or masses, exudates, or evidence of obstruction, uvula midline. Mucous membranes moist. Neck: Trachea midline, no thyromegaly or masses palpated, and no cervical lymphadenopathy. Supple, full range of motion without nuchal rigidity, or vertebral point tenderness. Chest/axilla: Normal chest wall appearance and motion. Nontender with no deformity. No lesions are appreciated. Cardiovascular: Regular rate and rhythm with a normal S1 and S2. No gallops, murmurs, or rubs. No pulse deficits. Respiratory: Lungs have equal breath sounds bilaterally, clear to auscultation and percussion. No rales, rhonchi or wheezes noted. No increased work of breathing, no retractions or nasal flaring. Abdomen/GI: Soft, with normal bowel sounds. No distension or tympany. No guarding or rebound. No evidence of tenderness throughout. Back: No spinal tenderness. No costovertebral tenderness. Skin: Warm, dry with normal turgor. Normal color with no rashes, no lesions, and no evidence of cellulitis. MS/ Extremity: Pulses equal, no cyanosis. Neurovascular intact. Full, normal range of motion. Neuro: Awake and alert, GCS 15, oriented to person, place, time, and situation. Cranial nerves II-XII grossly intact. Motor strength 5/5 in all extremities. Sensory grossly intact. Psych: Awake, alert, with orientation to person, place and time. Behavior, mood, and affect are within normal limits Vital Signs: 04:30 Weight 99.79 kg (R); Height 5 ft. 11 in. ; Pain 10/10; lg3 04:42 BP 128 / 82; Pulse 116; Resp 21; Temp 98.2; Pulse Ox 96% on R/A; kd3 04:57 BP 119 / 86; Pulse 95; Resp 18 S; Pulse Ox 96% on R/A; lg3 06:31 BP 107 / 77; Pulse 85; Resp 16; Pulse Ox 95% on R/A; kd3 08:32 BP 120 / 77; Pulse 98; Resp 18; Pulse Ox 97% on R/A; iw 04:30 Body Mass Index 30.68 (99.79 kg, 180.34 cm) lg3 04:30 Pain Scale: Adult lg3 [place] Coma Score: 06:11 Eye Response: spontaneous(4). Motor Response: obeys commands(6). Verbal Response: sp4 oriented(5). Total: 15. MDM: 04:39 Medical Screening Exam initiated sp4 06:15 Differential diagnosis: Abdominal pain and discomfort. Data reviewed: vital signs, sp4 nurses notes, old medical records, lab test result(s), radiologic studies, CT scan. Consideration of Admission/Observation Escalation of care including admission/observation considered. 06:47 ED course: COMPARISON: None. FINDINGS: Lower thorax: Bibasilar atelectasis. Abdomen: sp4 Stomach:Within normal limits Liver:No focal lesions. Enlarged. Hepatic steatosis. No intrahepatic ductal distention. Gallbladder:Nondistended Pancreas:Within normal limits Spleen:Within normal limits Right kidney:No hydronephrosis. Subcentimeter hypodensities, too small to characterize. Left kidney:No hydronephrosis. Subcentimeter hypodensities, too small to. Adrenal glands:Indeterminate left adrenal lesion measuring 1.7 cm. Vascular structures:Within normal limits Nodes:No lymphadenopathy by size criteria Pelvis: Small bowel:No significant distention.Fluid-filled contents. Appendix:Within normal limits Colon:No distention or acute pericolonic edema. Peritoneum: No free intraperitoneal fluid or air. Bones: No acute bone findings. Bladder: Unremarkable. Reproductive organs: No acute findings. IMPRESSION: 1. Fluid-filled small bowel contents, can be seen in setting of diarrheal illness. 2. Hepatomegaly with hepatic steatosis. 3. Indeterminate left adrenal lesion measuring 1.7 cm. Recommend nonemergent adrenal protocol CT or MRI. . 11/27 04:34 Order name: CBC with Diff; Complete Time: 05:31 4 11/27 04:34 Order name: CMP; Complete Time: 05:31 sp4 11/27 04:34 Order name: Lipase; Complete Time: 05:31 4 11/27 04:34 Order name: UA W/ Microscopic; Complete Time: 07:07 [facility] 11/27 04:34 Order name: CT Abd/Pelvis - IV Contrast Only 4 11/27 04:34 Order name: IV Saline Lock; Complete Time: 04:42 4 11/27 04:34 Order name: Labs collected and sent; Complete Time: 04:42 sp4 Administered Medications: 04:52 Drug: morphine IVP or IV 4 mg IVP once over 4 mins Route: IVP; Infused Over: 4 mins; lg3 Site: right antecubital; 06:00 Follow up: Response: No adverse reaction; Marked relief of symptoms; Pain is decreased lg3 04:52 Drug: Ketorolac IVP 30 mg IVP once Route: IVP; Site: right antecubital; lg3 05:59 Follow up: Response: No adverse reaction lg3 04:52 Drug: Ondansetron IVP 8 mg IVP once; over 2 minutes Route: IVP; Site: right antecubital;lg3 05:59 Follow up: Response: No adverse reaction; Marked relief of symptoms; Vomiting decreased lg3 04:52 Drug: NS 0.9% IV 1000 ml IV at 1000 ml once; to be given as a bolus over 60 minutes lg3 Route: IV; Rate: 1000 ml; Site: right antecubital; 05:59 Follow up: Response: No adverse reaction; IV Status: Completed infusion; IV Intake: lg3 1000ml 04:52 Drug: Droperidol IVP 2.5 mg IVP once Route: IVP; Site: right antecubital; lg3 05:59 Follow up: Response: No adverse reaction; Marked relief of symptoms; RASS: Drowsy (-1) lg3 04:52 Drug: Famotidine IVP 20 mg IVP once; dilute with 10 mL 0.9% NaCl; give over 2 minutes lg3 Route: IVP; Site: right antecubital; 05:59 Follow up: Response: No adverse reaction lg3 04:57 Drug: NS 0.9% IV 1000 ml IV at 1000 ml once; to be given as a bolus over 60 minutes lg3 Route: IV; Rate: 1000 ml; Site: right antecubital; 05:58 Follow up: Response: No adverse reaction; IV Status: Completed infusion; IV Intake: lg3 1000ml 07:32 Drug: Diphenoxylate-Atropine PO 2 tabs PO once Route: PO; iw 08:33 Follow up: Response: No adverse reaction iw 07:32 Drug: Promethazine PO 25 mg PO once Route: PO; iw 08:33 Follow up: Response: No adverse reaction iw 07:32 Drug: Dicyclomine PO 20 mg PO once Route: PO; iw 08:33 Follow up: Response: No adverse reaction iw Disposition Summary: 11/27/24 06:58 Discharge Ordered Notes: Location: Home sp4 Problem: new sp4 Symptoms: have improved sp4 Condition: Stable sp4 Diagnosis - Acute viral gastroenteritis, acute nausea vomiting, acute diarrheal illness sp4 Followup: sp4 - With: Saurabh Alfonso, DO - When: 7 - 10 days - Reason: Recheck today's complaints Discharge Instructions: - Discharge Summary Sheet sp4 - Viral Gastroenteritis, Adult, [id number] sp4 - Clear Liquid Diet, Adult, [id number] sp4 Forms: - Work release form sp4 - Patient Portal Instructions sp4 Prescriptions: - Lomotil 2.5-0.025 mg Oral tablet - take 1 tablet ORAL route every 6 hours As needed PRN diarrhea; 30 tablet; sp4 Refills: 0, Product Selection Permitted - dicyclomine 20 mg Oral tablet - take 2 tablets ORAL route 4 times per day PRN abdominal pain; 30 tablet; sp4 Refills: 0, Product Selection Permitted - ondansetron 8 mg Oral Tablet,disintegrating - take 1 tablet ORAL route every 8 hours PRN nausea; 30 tablet; Refills: 0, sp4 Product Selection Permitted Signatures: Dispatcher [employer] EDAndria Saenz, RN LAURA iw [employer], LAURA Ryan RN lg3 Ubaldo De León MD MD sp4 Corrections: (The following items were deleted from the chart) 04:34 04:34 CBC+H.LAB.BRZ ordered. EDMS EDMS 04:34 04:34 COMPREHENSIVE METABOLIC PANEL+C.LAB.BRZ ordered. EDMS EDMS 04:34 04:34 LIPASE+C.LAB.BRZ ordered. EDMS EDMS 04:34 04:34 Abdomen Pelvis W Con+CT.RAD.BRZ ordered. EDMS EDMS 04:35 04:35 UA W/ Microscopic+U.LAB.BRZ ordered. EDMS EDMS
[2024-11-27 07:01] LABS: Sqamous Epithelial None Seen /HPF (None Seen); Urine Micro Reflex YN NO BILL MICROSCOPIC
[2024-11-27] MEDS ORDERED: PROMETHAZINE 25 MG TABLET ONE (07:09)
[2024-11-27] MEDS ORDERED: DICYCLOMINE HCL 10 MG CAP ONE (07:09)
[2024-11-27] MEDS ORDERED: DIPHENOX/ATROP SULF 1 TAB PO ONE ×2 (07:10→07:25)
[2024-11-27 08:47] VITALS: TEMP 98.2
[2024-11-27 08:51] VITALS: BP 120/77; O2SAT 97
== END 2024-11-27 08:33 | disposition home or self-care (01) ==
LOC: ER 04:21
DX: A08.4 Viral intestinal infection, unspecified (principal); R19.7 Diarrhea, unspecified; F17.220 Nicotine dependence, chewing tobacco, uncomplicated
CPT/HCPCS: 96361; 85025; 81001; 36415; 83690; 80053; 74177; 96375; 96374; 99284; Q9967; Q0169; J2405; J1790; J7030 ×2